=== PATIENT | male | born 1970 | race Caucasian/White ===

== ENCOUNTER → 2016-05-10 | Outpatient (CLI) | payer OTHER ==
[~2016-05-10] MED LIST: /LOR25TA OR; /LOR25TA PO; /LORA10TA PO; ATOR1TAB21 PO; BUTR10DI2 TD; CARI350T20 PO; DICL75TA PO; OMEP20TA7 OR; OPAN5TAB3 PO; PRIL20TA2 PO; RANITAB PO; SOMA250T PO; ULTR50TA PO
--- NOTE | 2016-05-11 00:44 | ECWPNPC ---
PATIENT NAME: SAY RIOS : 1970 GENDER: MALE VISIT DATE: 05/10/2016 DISCHARGE DATE: 05/10/16 0937 VISIT LOCKED DATE TIME: PHYSICIAN: TEJINDER MUSE RESOURCE: TEJINDER MUSE REASON FOR APPOINTMENT 1. WC, BACK HISTORY OF PRESENT ILLNESS HISTORY OF PRESENT ILLNESS: PAIN THE PATIENT DESCRIBES THE PAIN... FALL RISK SCREENING: SCREENING :NO FALLS IN THE PAST YEAR TODAY'S VISIT: NOTES: WORKERS COMP FOLLOW UP FOR LOW BACK PAIN. RATES PAIN TODAY 6.5/10. DESCRIBES PAIN CONSTANT WITH INTERMITTANT EXACERBATION OF PAIN. WHICH OCCURS WITH ACTIVITY. DESCRIBES PAIN ACHING, BURNING, SHARP AND STABBING TENDER SORE AND SHOOTING. PAIN IS ACROSS THE LOW BACK WITH RADIATION TO BOTH LEGS. . CURRENT MEDICATIONS TAKING VITAMIN D-3 5000 UNIT TABLET ORALLY BID TAKING LORATADINE 10 MG TABLET 1 TABLET ORALLY DIRECTED TAKING OMEPRAZOLE 20 MG CAPSULE DELAYED RELEASE 1 CAPSULES ORALLY ONCE A DAY NEEDED TAKING DICLOFENAC SODIUM 75 MG TABLET 1 TAB ORALLY TWICE A DAY WITH FOOD WORKERS COMP, NOTES: TAKE WITH FOOD TAKING CARISOPRODOL 350 MG TABLET 1 TABLET ORALLY BID MDD=2 WORKERS COMP TAKING TRAMADOL HCL 50 MG TABLET 1 -2 TABLETS ORALLY EVERY 4 HOURS PRN PAIN MDD=8 WORKERS COMP TAKING ATORVASTATIN CALCIUM 80 MG TABLET 1 TABLET ORALLY ONCE A DAY NOT-TAKING ATORVASTATIN CALCIUM 20 MG TABLET 1 TABLET ORALLY ONCE A DAY NOT-TAKING PRILOSEC 20 MG CAPSULE DELAYED RELEASE 1 CAPSULE ORALLY ONCE A DAY MEDICATION LIST REVIEWED AND RECONCILED WITH THE PATIENT ALLERGIES N.K.D.A. SOCIAL HISTORY GENERAL: TOBACCO USE ARE YOU A:NONSMOKER LEARNING BARRIERS / SPECIAL NEEDS ORIENTED TO PLAN OF CARE: PATIENT, PAIN MANAGEMENT PATIENT, ORIENTED TO PLAN OF CARE: PATIENT, PAIN MANAGEMENT PATIENT. NEW PATIENT PAIN DIARY TODAY'S VISITNOTES FROM 0-10, WHAT LEVEL IS YOUR PAIN TODAY?0 PAIN CLINIC PFS, CLERGY, PUBLIC HEALTH REFERRALS PFS REFERRAL NEEDED?NO CLERGY REFERRAL NEEDED?NO PUBLIC HEALTH REFERRAL NEEDED?NO WAS THE PROVIDER NOTIFIED OF ANY PERTINENT INFO?NO PFS REFERRAL NEEDED?NO CLERGY REFERRAL NEEDED?NO PUBLIC HEALTH REFERRAL NEEDED?NO WAS THE PROVIDER NOTIFIED OF ANY PERTINENT INFO?NO REVIEW OF SYSTEMS CONSTITUTIONAL: ANY CHANGE IN YOUR MEDICAL CONDITION? NO . CHILLS NO . FEVER NO . INFECTION: DO YOU HAVE NEW INFECTIONS? NO . DO YOU HAVE HISTORY OF MRSA? NO . MUSCULOSKELETAL: ANY NEW PATTERNS OF PAIN OR NUMBNESS? NO . GASTROENTEROLOGY: ANY NEW CHANGE IN BOWEL CONTROL? NO . GENITOURINARY: ANY NEW CHANGE IN BLADDER CONTROL? NO . IS THERE A CHANCE YOU COULD BE ? NO . HEMATOLOGY/LYMPH: DO YOU TAKE ANY BLOOD THINNERS? (FOR EXAMPLE- COUMADIN, PLAVIX, AGGRENOX, PLATEL, PRADAXA, OR XARELTO) NO . WHEN WAS YOUR LAST DOSE? DATE: TIME: . NEUROLOGY: HAVE YOU FALLEN IN THE PAST 6 MONTHS? NO . ANY NEW EXTREMITY NUMBNESS OR WEAKNESS? NO . CARDIOLOGY: DO YOU HAVE A PACEMAKER OR DEFIBRILLATOR? NO . RESPIRATORY: HAVE YOU BEEN SICK IN THE PAST WEEK? NO . FEVER NO . FLU LIKE SYMPTOMS? NO . COUGH NO . INTEGUMENTARY: DO YOU HAVE ANY RASHES OR OPEN SORES? NO . ALLERGIC/IMMUNO: ARE YOU ALLERGIC TO SHELLFISH OR IV DYE? NO . ANY NEW ALLERGIES? NO . PSYCHIATRIC: DO YOU HAVE THOUGHTS OF HURTING YOURSELF OR SOMEONE ELSE? NO . ARE YOU ABUSED, NEGLECTED, OR IN AN UNSAFE ENVIRONMENT? NO . ENDOCRINOLOGY: ARE YOU DIABETIC? NO . OTHER: DO YOU NEED ANY PRESCRIPTIONS? NO . IF YES, PLEASE LIST: ____ . ANY NEW PROBLEMS WITH YOUR MEDICATIONS? NO . WHEN DID YOU LAST EAT? ____ . WHEN DID YOU LAST DRINK? ____ . WHAT DID YOU LAST DRINK? ____ . NAME OF PERSON DRIVING YOU HOME? ____ . DO YOU HAVE ANY OTHER QUESTIONS OR CONCERNS NO . REVIEWED BY: PROVIDER: TEJINDER KRAUSE . VITAL SIGNS WT 230 LBS, HT 6'1", BMI 30.34 INDEX, BP 139/80 MM HG, HR 82 /MIN, RR 18 /MIN, TEMP 97.9 F, OXYGEN SAT % 95%, REVIEWED BY: CS. EXAMINATION GENERAL EXAMINATION: PSYCHALERT , ORIENTED X 3 , APPROPRIATE MOOD AND AFFECT . LUNGS:CLEAR TO AUSCULTATION BILATERALLY. HEART:HEART RATE REGULAR. MUSCULOSKELETAL:TRIGGER POINTS:, ELICITED WITH PALPATION OVER LUMBAR PARAVERTEBRAL MUSCLES AND INTO THE SACRUM. RESTRICTION OF ROM IN THIS AREA. WEAKNESS BILATERALLY WITH QUAD FLEXION.BACK PAIN WITH QUAD FLEXION BILATERALLY. IS ABLE TO FLEX AT ANKLE BILATERALLY.CANE USED FOR BALANCE. POSTURED STOOPED. GAIT ANTALGIC, WIDE BASED. ASSESSMENTS LUMBAR RADICULOPATHY - M54.16 (PRIMARY) LUMBAR POST-LAMINECTOMY SYNDROME - M96.1 TREATMENT LUMBAR RADICULOPATHY NOTES: CONTINUE CURRENT MEDS. WALK TOLERATED. PROCEDURES PN WORKMANS' COMP OPINION IN YOUR OPINION, WAS THE INCIDENT THAT THE PATIENT DESCRIBED THE COMPETENT MEDICAL CAUSE OF THIS INJURY/ILLNESS? YES ARE THE PATIENT'S COMPLAINTS CONSISTENT WITH HIS/HER HISTORY OF THE INJURY/ILLNESS? YES IS THE PATIENT'S HISTORY OF THE INJURY/ILLNESS CONSISTENT WITH YOUR OBJECTIVE FINDING? YES WHAT IS THE PERCENTAGE OF TEMPORARY IMPAIRMENT? TOTAL = 100% IS THE PATIENT WORKING? NO DOCTOR ON SITE: PRO BELL MD PROCEDURE CODES FA211 ESTABILISHED PATIENT [facility] CHARGE FOLLOW UP 3 MONS (REASON: WC) ELECTRONICALLY SIGNED BY FAY GODOY ON 05/10/2016 AT 11:19 AM EST DISCLAIMER : THIS IS A VISIT SUMMARY EXTRACTED FROM THE [employer] CHART. IT IS NOT A COPY OF THE [employer] PROGRESS NOTE. MACIEJ
== END ==
LOC: M PAIN 08:40
PROVIDERS: ATTEND Nurse Practitioner Family
DX: Z09 Encounter for follow-up examination after completed treatment for conditions other than malignant neoplasm (principal); M54.16 Radiculopathy, lumbar region; M96.1 Postlaminectomy syndrome, not elsewhere classified; Z79.891 Long term (current) use of opiate analgesic; Z79.899 Other long term (current) drug therapy

== ENCOUNTER → 2016-08-08 | Outpatient (CLI) | payer OTHER ==
--- NOTE | 2016-08-22 02:22 | ECWPNPC ---
PATIENT NAME: SAY RIOS : 1970 GENDER: MALE VISIT DATE: 08/08/2016 DISCHARGE DATE: 08/08/16926 VISIT LOCKED DATE TIME: PHYSICIAN: TEJINDER MUSE RESOURCE: TEJINDER MUSE REASON FOR APPOINTMENT 1. BACK HISTORY OF PRESENT ILLNESS HISTORY OF PRESENT ILLNESS: PAIN THE PATIENT DESCRIBES THE PAIN... FALL RISK SCREENING: SCREENING :NO FALLS IN THE PAST YEAR TODAY'S VISIT: NOTES: FOLLOWUP VISIT FOR LOW BACK. RATES PAIN TODAY 7.5/10. DESCRIBES PAIN CONSTANT, ACHING, BURNING, SHARP AND STABBING. NOTES PAIN IS CENTERED AT LOW BACK WITH RADIATION OF PAIN TO BOTH LEGS. IS NOTING WEAKING IN LOWER EXTREMITIES. REPORT MEDICATIONS KEEP THE PAIN MANAGABLE AND THAT HE IS HAVING NO ADVERSE REACTIONS.. CURRENT MEDICATIONS TAKING VITAMIN D-3 5000 UNIT TABLET ORALLY BID TAKING LORATADINE 10 MG TABLET 1 TABLET ORALLY DIRECTED TAKING OMEPRAZOLE 20 MG CAPSULE DELAYED RELEASE 1 CAPSULES ORALLY ONCE A DAY NEEDED TAKING ATORVASTATIN CALCIUM 80 MG TABLET 1 TABLET ORALLY ONCE A DAY TAKING DICLOFENAC SODIUM 75 MG TABLET 1 TAB ORALLY TWICE A DAY WITH FOOD WORKERS COMP, NOTES: TAKE WITH FOOD TAKING TRAMADOL HCL 50 MG TABLET 1 -2 TABLETS ORALLY EVERY 4 HOURS PRN PAIN MDD=8 WORKERS COMP TAKING CARISOPRODOL 350 MG TABLET 1 TABLET ORALLY BID MDD=2 WORKERS COMP NOT-TAKING ATORVASTATIN CALCIUM 20 MG TABLET 1 TABLET ORALLY ONCE A DAY NOT-TAKING PRILOSEC 20 MG CAPSULE DELAYED RELEASE 1 CAPSULE ORALLY ONCE A DAY MEDICATION LIST REVIEWED AND RECONCILED WITH THE PATIENT ALLERGIES N.K.D.A. SOCIAL HISTORY GENERAL: PAIN CLINIC PFS, CLERGY, PUBLIC HEALTH REFERRALS CLERGY REFERRAL NEEDED?NO WAS THE PROVIDER NOTIFIED OF ANY PERTINENT INFO?NO PFS REFERRAL NEEDED?NO PUBLIC HEALTH REFERRAL NEEDED?NO PATIENT: ____. REVIEW OF SYSTEMS CONSTITUTIONAL: ANY CHANGE IN YOUR MEDICAL CONDITION? NO . CHILLS NO . FEVER NO . INFECTION: DO YOU HAVE NEW INFECTIONS? NO . DO YOU HAVE HISTORY OF MRSA? NO . MUSCULOSKELETAL: ANY NEW PATTERNS OF PAIN OR NUMBNESS? NO . GASTROENTEROLOGY: ANY NEW CHANGE IN BOWEL CONTROL? NO . GENITOURINARY: ANY NEW CHANGE IN BLADDER CONTROL? NO . IS THERE A CHANCE YOU COULD BE ? NO . HEMATOLOGY/LYMPH: DO YOU TAKE ANY BLOOD THINNERS? (FOR EXAMPLE- COUMADIN, PLAVIX, AGGRENOX, PLATEL, PRADAXA, OR XARELTO) NO . WHEN WAS YOUR LAST DOSE? DATE: TIME: . NEUROLOGY: HAVE YOU FALLEN IN THE PAST 6 MONTHS? NO . ANY NEW EXTREMITY NUMBNESS OR WEAKNESS? NO . CARDIOLOGY: DO YOU HAVE A PACEMAKER OR DEFIBRILLATOR? NO . RESPIRATORY: HAVE YOU BEEN SICK IN THE PAST WEEK? NO . FEVER NO . FLU LIKE SYMPTOMS? NO . COUGH NO . INTEGUMENTARY: DO YOU HAVE ANY RASHES OR OPEN SORES? NO . ALLERGIC/IMMUNO: ARE YOU ALLERGIC TO SHELLFISH OR IV DYE? NO . ANY NEW ALLERGIES? NO . PSYCHIATRIC: DO YOU HAVE THOUGHTS OF HURTING YOURSELF OR SOMEONE ELSE? NO . ARE YOU ABUSED, NEGLECTED, OR IN AN UNSAFE ENVIRONMENT? NO . ENDOCRINOLOGY: ARE YOU DIABETIC? NO . OTHER: DO YOU NEED ANY PRESCRIPTIONS? NO . IF YES, PLEASE LIST: ____ . ANY NEW PROBLEMS WITH YOUR MEDICATIONS? NO . WHEN DID YOU LAST EAT? ____ . WHEN DID YOU LAST DRINK? ____ . WHAT DID YOU LAST DRINK? ____ . NAME OF PERSON DRIVING YOU HOME? ____ . DO YOU HAVE ANY OTHER QUESTIONS OR CONCERNS NO . REVIEWED BY: PROVIDER: TEJINDER KRAUSE . VITAL SIGNS WT 243.8 LBS, HT 6'1", BMI 32.16 INDEX, BP 127/83 MM HG, HR 82 /MIN, RR 18 /MIN, TEMP 99 F, OXYGEN SAT % 98%, NA INITIALS AW 0848, REVIEWED BY: CS. EXAMINATION GENERAL EXAMINATION: PSYCHALERT , ORIENTED X 3 , APPROPRIATE MOOD AND AFFECT . LUNGS:CLEAR TO AUSCULTATION BILATERALLY. HEART:HEART RATE REGULAR. MUSCULOSKELETAL:TRIGGER POINTS:, ELICITED WITH PALPATION OVER LUMBAR PARAVERTEBRAL MUSCLES AND INTO THE SACRUM. RESTRICTION OF ROM IN THIS AREA. WEAKNESS BILATERALLY WITH QUAD FLEXION.BACK PAIN WITH QUAD FLEXION BILATERALLY. IS ABLE TO FLEX AT ANKLE BILATERALLY.CANE USED FOR BALANCE. POSTURED STOOPED. GAIT ANTALGIC, WIDE BASED. ASSESSMENTS LUMBAR RADICULOPATHY - M54.16 (PRIMARY) LUMBAR DISC DISPLACEMENT WITHOUT MYELOPATHY - M51.26 TREATMENT LUMBAR RADICULOPATHY NOTES: CONTINUE WALKING, EXERCISES AND STRETCHESCONTINUE CURRENT MEDS. PROCEDURES PN WORKMANS' COMP OPINION IN YOUR OPINION, WAS THE INCIDENT THAT THE PATIENT DESCRIBED THE COMPETENT MEDICAL CAUSE OF THIS INJURY/ILLNESS? YES ARE THE PATIENT'S COMPLAINTS CONSISTENT WITH HIS/HER HISTORY OF THE INJURY/ILLNESS? YES IS THE PATIENT'S HISTORY OF THE INJURY/ILLNESS CONSISTENT WITH YOUR OBJECTIVE FINDING? YES WHAT IS THE PERCENTAGE OF TEMPORARY IMPAIRMENT? TOTAL = 100% IS THE PATIENT WORKING? NO DOCTOR ON SITE: PRO BELL MD PROCEDURE CODES FA211 ESTABILISHED PATIENT [facility] CHARGE DISPOSITION & COMMUNICATION FOLLOW UP [address] DE SOUZA (REASON: WC BACK) ELECTRONICALLY SIGNED BY FAY GODOY ON 08/21/2016 AT 08:52 AM EDT DISCLAIMER : THIS IS A VISIT SUMMARY EXTRACTED FROM THE [employer] CHART. IT IS NOT A COPY OF THE [employer] PROGRESS NOTE. MACIEJ
== END ==
LOC: M PAIN 08:40
PROVIDERS: ATTEND Nurse Practitioner Family
DX: G89.29 Other chronic pain (principal); M54.16 Radiculopathy, lumbar region; M51.26 Other intervertebral disc displacement, lumbar region; Z79.899 Other long term (current) drug therapy

== ENCOUNTER → 2016-11-22 | Outpatient (CLI) | payer OTHER ==
[~2016-11-22] MED LIST changes: +CARI350T PO; -CARI350T20 PO
--- NOTE | 2016-12-11 00:31 | ECWPNPC ---
PATIENT NAME: SAY RIOS : 1970 GENDER: MALE VISIT DATE: 11/22/2016 DISCHARGE DATE: 11/22/16 1718 VISIT LOCKED DATE TIME: PHYSICIAN: PRO DE SOUZA RESOURCE: PRO DE SOUZA REASON FOR APPOINTMENT 1. W/C BACK PAIN HISTORY OF PRESENT ILLNESS HISTORY OF PRESENT ILLNESS: PAIN THE PATIENT DESCRIBES THE PAIN... 46 YEAR OLD MALE PATIENT WITH HISTORY OF CHRONIC LOW BACK PAIN. PATIENT DESCRIBES THE PAIN ACHING, BURNING, SHARP, STABBING, SORE, AND SHOOTING WITH A PAIN SCORE OF 7/10. PATIENT WAS HURT IN A WORK RELATED INJURY ON 09/17/16 WHILE WORKING AT [employer] WHILE WEED [employer] AND INJURED HIS BACK. PATIENT REPORTS ONE BACK SURGERY IN 2010 THAT INCREASED HIS PAIN AND PHYSICAL THERAPY DID NOT AID IN PAIN RELIEF. CURRENTLY THE PATIENT IS USING SOMA AND TRAMADOL TO AID IN PAIN RELIEF. PATIENT STATES THAT ANY TYPE OF ACTIVITY INCREASES THE PAIN IN HIS LOWER BACK INCLUDING WALKING, STANDING, AND SITTING. PATIENT DENIES UNEXPLAINABLE WEIGHT LOSS, FEVER, CHILLS, NEW CHANGES ON HIS URINARY OR BOWEL CONTROL. FALL RISK SCREENING: SCREENING :NO FALLS IN THE PAST YEAR CURRENT MEDICATIONS TAKING VITAMIN D-3 5000 UNIT TABLET ORALLY BID TAKING LORATADINE 10 MG TABLET 1 TABLET ORALLY DIRECTED TAKING OMEPRAZOLE 20 MG CAPSULE DELAYED RELEASE 1 CAPSULES ORALLY ONCE A DAY NEEDED TAKING ATORVASTATIN CALCIUM 80 MG TABLET 1 TABLET ORALLY ONCE A DAY TAKING TRAMADOL HCL 50 MG TABLET 1 -2 TABLETS ORALLY EVERY 4 HOURS PRN PAIN MDD=8 WORKERS COMP TAKING CARISOPRODOL 350 MG TABLET 1 TABLET ORALLY BID MDD=2 WORKERS COMP TAKING CLOPIDOGREL BISULFATE 75 MG TABLET 1 TABLET ORALLY ONCE A DAY TAKING LISINOPRIL 5 MG TABLET 1 TABLET ORALLY ONCE A DAY TAKING COQ10 100 MG CAPSULE 1 CAPSULE WITH A MEAL ORALLY ONCE A DAY TAKING METOPROLOL TARTRATE 25 MG TABLET 1/2 TABLET WITH FOOD ORALLY TWICE A DAY NOT-TAKING ATORVASTATIN CALCIUM 20 MG TABLET 1 TABLET ORALLY ONCE A DAY NOT-TAKING PRILOSEC 20 MG CAPSULE DELAYED RELEASE 1 CAPSULE ORALLY ONCE A DAY DISCONTINUED DICLOFENAC SODIUM 75 MG TABLET 1 TAB ORALLY TWICE A DAY WITH FOOD WORKERS COMP, NOTES: TAKE WITH FOOD MEDICATION LIST REVIEWED AND RECONCILED WITH THE PATIENT PAST MEDICAL HISTORY 10/08/16 IN ALLERGIES N.K.D.A. SURGICAL HISTORY SINUS,BACK,RIGHT SHOULDER,TONSILLECTOMY CARDIAC STENT 10/08/16 SOCIAL HISTORY GENERAL: PAIN CLINIC PFS, CLERGY, PUBLIC HEALTH REFERRALS CLERGY REFERRAL NEEDED?NO WAS THE PROVIDER NOTIFIED OF ANY PERTINENT INFO?NO PFS REFERRAL NEEDED?NO PUBLIC HEALTH REFERRAL NEEDED?NO PATIENT: ____. REVIEW OF SYSTEMS REVIEWED BY: PROVIDER: PRO DE SOUZA MD . CONSTITUTIONAL: ANY CHANGE IN YOUR MEDICAL CONDITION? YES, IN 10/08/16 . CHILLS NO . FEVER NO . INFECTION: DO YOU HAVE NEW INFECTIONS? NO . DO YOU HAVE HISTORY OF MRSA? NO . MUSCULOSKELETAL: ANY NEW PATTERNS OF PAIN OR NUMBNESS? NO . GASTROENTEROLOGY: ANY NEW CHANGE IN BOWEL CONTROL? NO . GENITOURINARY: ANY NEW CHANGE IN BLADDER CONTROL? NO . IS THERE A CHANCE YOU COULD BE ? NO . HEMATOLOGY/LYMPH: DO YOU TAKE ANY BLOOD THINNERS? (FOR EXAMPLE- COUMADIN, PLAVIX, AGGRENOX, PLATEL, PRADAXA, OR XARELTO) YES, CLOPIDOGRIL . WHEN WAS YOUR LAST DOSE? DATE: TIME: . NEUROLOGY: HAVE YOU FALLEN IN THE PAST 6 MONTHS? NO . ANY NEW EXTREMITY NUMBNESS OR WEAKNESS? NO . CARDIOLOGY: DO YOU HAVE A PACEMAKER OR DEFIBRILLATOR? NO . RESPIRATORY: HAVE YOU BEEN SICK IN THE PAST WEEK? NO . FEVER NO . FLU LIKE SYMPTOMS? NO . COUGH NO . INTEGUMENTARY: DO YOU HAVE ANY RASHES OR OPEN SORES? NO . ALLERGIC/IMMUNO: ARE YOU ALLERGIC TO SHELLFISH OR IV DYE? NO . ANY NEW ALLERGIES? NO . PSYCHIATRIC: DO YOU HAVE THOUGHTS OF HURTING YOURSELF OR SOMEONE ELSE? NO . ARE YOU ABUSED, NEGLECTED, OR IN AN UNSAFE ENVIRONMENT? NO . ENDOCRINOLOGY: ARE YOU DIABETIC? NO . OTHER: DO YOU NEED ANY PRESCRIPTIONS? NO . IF YES, PLEASE LIST: ____ . ANY NEW PROBLEMS WITH YOUR MEDICATIONS? NO . WHEN DID YOU LAST EAT? ____ . WHEN DID YOU LAST DRINK? ____ . WHAT DID YOU LAST DRINK? ____ . NAME OF PERSON DRIVING YOU HOME? ____ . DO YOU HAVE ANY OTHER QUESTIONS OR CONCERNS TRIMMER SAWYER D/C'D DICLOFENAC. ONLY WANTS HIM TO TAKE CELEBREX, CAN ALSO TAKE TYLENOL. . VITAL SIGNS WT 230 LBS, HT 6'1", BMI 30.34 INDEX, BP 133/77 MM HG, HR 66 /MIN, RR 18 /MIN, TEMP 98.5 F, OXYGEN SAT % 96, NA INITIALS AW 1517, REVIEWED BY: JACKLYN. EXAMINATION : PATIENT IS ALERT O X 3 AND COOPERATIVE. ANTALGIC GAIT. TENDERNESS IN THE LOWER BACK AND PARASPINAL MUSCLE GROUP. RIGHT LEG WEAKER THEN THE LEFT AT EXTENSION AND FLEXION. LIMPING RIGHT LEG. FLEX 40 DEGREESAND UNABLE TO EXTEND BACK DUE TO PAIN. ASSESSMENTS RADICULOPATHY, LUMBAR REGION - M54.16 (PRIMARY) POSTLAMINECTOMY SYNDROME, NOT ELSEWHERE CLASSIFIED - M96.1 TREATMENT RADICULOPATHY, LUMBAR REGION NOTES: WE DISCUSSED SEVERAL ISSUES WITH MR. RIOS'S PAIN MANAGEMENT CASE. AT THIS TIME THE PATIENT WILL CONTINUE WITH THE SAME MEDICATION REGIME BEFORE. PATIENT IS USING THE TRAMADOL FOR THE SOMATIC PAIN AND THE SOMA FOR THE MUSCLE SPASMS. PATIENT DENIES ABUSE OF ANY MEDICATION, DENIES USE OF ILLEGAL SUBSTANCES, AND STATES SHE IS ONLY USING THE MEDICATION FOR PAIN MANAGEMENT. URINE TOXICOLOGY REPORT DONE ON 06/15/15 SHOWS CONSISTENT RESULTS WITH THE PATIENT'S MEDICATION LIST. PATIENT WILL PERFORM A URINE TOXICOLOGY REPORT TODAY ALONG WITH A NARCOTIC AGREEMENT. PATIENT WAS REMINDED TO BRING ALL MEDICATIONS TO EVERY VISIT. WE ALSO DISCUSSED SEVERAL INTERVENTIONS THAT MAY AID THE PATIENT IN PAIN RELIEF. WE DISCUSSED MOVING FORWARD WITH A LUMBAR FACET BLOCK BUT THE PATIENT DOES NOT WANT TO MOVE FORWARD WITH INTERVENTION AT THIS TIME. PATIENT WILL FOLLOW UP IN 2 MONTHS. INSTRUCTIONS WERE GIVEN, QUESTIONS WERE ANSWERED, PATIENT REPORTS UNDERSTANDING AND AGREES WITH THE PLAN. I, YAYA BARNETT, DOCUMENTED THE ABOVE INFORMATION ACTING A SCRIBE FOR DR. DE SOUZA. I HAVE REVIEWED THE ABOVE DOCUMENT, WRITTEN BY YAYA LOZANO AND I VERIFY THAT IT IS ACCURATE. OTHERS REFILL TRAMADOL HCL TABLET, 50 MG, 1 TO 2 TABLETS, ORALLY FOR PAIN, EVERY 4 HOURS PRN PAIN MDD=6 WORKERS COMP, 30 DAY(S), 175, REFILLS 0 REFILL CARISOPRODOL TABLET, 350 MG, 1 TABLET, ORALLY, DAILY NEEDED FOR SPASMS AND PAIN MDD1, 30 DAY(S), 30, REFILLS 0 PROCEDURES PN WORKMANS' COMP OPINION IN YOUR OPINION, WAS THE INCIDENT THAT THE PATIENT DESCRIBED THE COMPETENT MEDICAL CAUSE OF THIS INJURY/ILLNESS? YES ARE THE PATIENT'S COMPLAINTS CONSISTENT WITH HIS/HER HISTORY OF THE INJURY/ILLNESS? YES IS THE PATIENT'S HISTORY OF THE INJURY/ILLNESS CONSISTENT WITH YOUR OBJECTIVE FINDING? YES WHAT IS THE PERCENTAGE OF TEMPORARY IMPAIRMENT? TOTAL = 100% IS THE PATIENT WORKING? NO DOCTOR ON SITE: PRO BELL MD PROCEDURE CODES FA211 ESTABILISHED PATIENT [facility] FACILITY CHARGE G8427 DOC MEDS VERIFIED W/PT OR RE G8730 PAIN ASSESS POS TOOL F/U PLAN DOC DISPOSITION & COMMUNICATION FOLLOW UP 2 MONTHS ELECTRONICALLY SIGNED BY PRO DE SOUZA MD ON 12/10/2016 AT 11:58 AM EDT DISCLAIMER : THIS IS A VISIT SUMMARY EXTRACTED FROM THE [employer] CHART. IT IS NOT A COPY OF THE [employer] PROGRESS NOTE. MACIEJ
== END | disposition home or self-care (01) ==
LOC: M PAIN 15:00
PROVIDERS: ATTEND Anesthesiology
DX: G89.29 Other chronic pain (principal); M54.16 Radiculopathy, lumbar region; M96.1 Postlaminectomy syndrome, not elsewhere classified; Z86.73 Personal history of transient ischemic attack (TIA), and cerebral infarction without residual deficits; Z79.899 Other long term (current) drug therapy

== ENCOUNTER → 2017-02-20 | Outpatient (CLI) | payer OTHER ==
--- NOTE | 2017-03-19 00:42 | ECWPNPC ---
PATIENT NAME: SAY RIOS : 1970 GENDER: MALE VISIT DATE: 02/20/2017 DISCHARGE DATE: 02/20/17 1019 VISIT LOCKED DATE TIME: PHYSICIAN: TEJINDER MUSE RESOURCE: TEJINDER MUSE REASON FOR APPOINTMENT 1. WC, BACK HISTORY OF PRESENT ILLNESS HISTORY OF PRESENT ILLNESS: PAIN THE PATIENT DESCRIBES THE PAIN... FALL RISK SCREENING: SCREENING :NO FALLS IN THE PAST YEAR TODAY'S VISIT: NOTES: FOLLOWUP FOR LOW BACK PAIN. RATES PAIN TODAY 7.5/10. DESCRIBES PAIN CONSTANT, SHARP , STABBING, TENDER, THROBBING AND SORE. PAIN IS CENTERED ACROSS THE LOW BACK AND RADIATES TO BOTH LEGS. REPORTS IT IS HARD TO WALK ANY DISTANCE.. CURRENT MEDICATIONS TAKING VITAMIN D-3 5000 UNIT TABLET ORALLY BID TAKING LORATADINE 10 MG TABLET 1 TABLET ORALLY DIRECTED TAKING OMEPRAZOLE 20 MG CAPSULE DELAYED RELEASE 1 CAPSULES ORALLY ONCE A DAY NEEDED TAKING ATORVASTATIN CALCIUM 80 MG TABLET 1 TABLET ORALLY ONCE A DAY TAKING CLOPIDOGREL BISULFATE 75 MG TABLET 1 TABLET ORALLY ONCE A DAY TAKING LISINOPRIL 5 MG TABLET 1 TABLET ORALLY ONCE A DAY TAKING COQ10 100 MG CAPSULE 1 CAPSULE WITH A MEAL ORALLY ONCE A DAY TAKING METOPROLOL TARTRATE 25 MG TABLET 1/2 TABLET WITH FOOD ORALLY TWICE A DAY TAKING TRAMADOL HCL 50 MG TABLET 1 TO 2 TABLETS ORALLY FOR PAIN EVERY 4 HOURS PRN PAIN MDD=6 WORKERS COMP TAKING CARISOPRODOL 350 MG TABLET 1 TABLET ORALLY DAILY NEEDED FOR SPASMS AND PAIN MDD1 NOT-TAKING ATORVASTATIN CALCIUM 20 MG TABLET 1 TABLET ORALLY ONCE A DAY NOT-TAKING PRILOSEC 20 MG CAPSULE DELAYED RELEASE 1 CAPSULE ORALLY ONCE A DAY MEDICATION LIST REVIEWED AND RECONCILED WITH THE PATIENT PAST MEDICAL HISTORY 10/08/16 [place] ALLERGIES N.K.D.A. SOCIAL HISTORY GENERAL: TOBACCO USE ARE YOU A:FORMER SMOKER HOW LONG HAS IT BEEN SINCE YOU LAST SMOKED?5-10 YEARS ALCOHOL SCREENING POINTS0 INTERPRETATIONNEGATIVE RECREATIONAL DRUG USE DRUG USE?NO MUSLIM [id number] [employer] LANG[employer]AGE LANGUAGES SPOKEN:GEORGIAN LEARNING BARRIERS / SPECIAL NEEDS BARRIERS TO LEARNING?NO HEARING IMPAIRED?NO VISION IMPAIRED?NO COGNITIVELY IMPAIRED?NO READINESS TO LEARN?YES LEARNING PREFERENCES?NO LEARNING CAPABILITIES PRESENT?YES EMOTIONAL BARRIERS?NO SPECIAL DEVICES?NO PALEOLOGIST NEEDED?NO PAIN CLINIC PFS, CLERGY, PUBLIC HEALTH REFERRALS PFS REFERRAL NEEDED?NO CLERGY REFERRAL NEEDED?NO PUBLIC HEALTH REFERRAL NEEDED?NO HAS THE PATIENT BEEN EDUCATED REGARDING HIS/HER PLAN OF CARE?YES HAS THE PATIENT BEEN EDUCATED REGARDING PAIN, THE RISK FOR PAIN, THE IMPORTANCE OF EFFECTIVE PAIN MANAGEMENT, AND THE PAIN ASSESSMENT PROCESS?YES PATIENT: ____. ADVANCE DIRECTIVES HEALTH CARE PROXY?YES NAME OF HCP VICTOR HUGO RIOS CONTACT # FOR HCP [phone] DO YOU HAVE A COPY WITH YOU?NO DO YOU HAVE A DNR?NO WOULD YOU LIKE MORE INFORMATION?NO LIVING WILL?NO WOULD YOU LIKE MORE INFORMATION?NO POWER OF RETAIL MERCHANDISING MANAGER?NO WOULD YOU LIKE MORE INFORMATION?NO REVIEW OF SYSTEMS REVIEWED BY: PROVIDER: TEJINDER KRAUSE . CONSTITUTIONAL: ANY CHANGE IN YOUR MEDICAL CONDITION? NO . CHILLS NO . FEVER NO . INFECTION: DO YOU HAVE NEW INFECTIONS? NO . DO YOU HAVE HISTORY OF MRSA? NO . MUSCULOSKELETAL: ANY NEW PATTERNS OF PAIN OR NUMBNESS? NO . GASTROENTEROLOGY: ANY NEW CHANGE IN BOWEL CONTROL? NO . GENITOURINARY: ANY NEW CHANGE IN BLADDER CONTROL? NO . IS THERE A CHANCE YOU COULD BE ? NO . HEMATOLOGY/LYMPH: DO YOU TAKE ANY BLOOD THINNERS? (FOR EXAMPLE- COUMADIN, PLAVIX, AGGRENOX, PLATEL, PRADAXA, OR XARELTO) YES, PLAVIX . WHEN WAS YOUR LAST DOSE? DATE:02/20/17 TIME: 0700 . NEUROLOGY: HAVE YOU FALLEN IN THE PAST 6 MONTHS? NO . ANY NEW EXTREMITY NUMBNESS OR WEAKNESS? NO . CARDIOLOGY: DO YOU HAVE A PACEMAKER OR DEFIBRILLATOR? NO . HEART ATTACK WITH PLACEMENT OF CARDIAC STENT IN SEPTEMBER. NO RECURRENT CHEST PAIN. . RESPIRATORY: HAVE YOU BEEN SICK IN THE PAST WEEK? NO . FEVER NO . FLU LIKE SYMPTOMS? NO . COUGH NO . INTEGUMENTARY: DO YOU HAVE ANY RASHES OR OPEN SORES? NO . ALLERGIC/IMMUNO: ARE YOU ALLERGIC TO SHELLFISH OR IV DYE? NO . ANY NEW ALLERGIES? NO . PSYCHIATRIC: DO YOU HAVE THOUGHTS OF HURTING YOURSELF OR SOMEONE ELSE? NO . ARE YOU ABUSED, NEGLECTED, OR IN AN UNSAFE ENVIRONMENT? NO . ENDOCRINOLOGY: ARE YOU DIABETIC? NO . OTHER: DO YOU NEED ANY PRESCRIPTIONS? NO . IF YES, PLEASE LIST: ____ . ANY NEW PROBLEMS WITH YOUR MEDICATIONS? NO . WHEN DID YOU LAST EAT? ____ . WHEN DID YOU LAST DRINK? ____ . WHAT DID YOU LAST DRINK? ____ . NAME OF PERSON DRIVING YOU HOME? ____ . DO YOU HAVE ANY OTHER QUESTIONS OR CONCERNS NO . VITAL SIGNS WT 240.0 LBS, HT 6'1", BMI 31.66 INDEX, BP 133/90 MM HG, HR 65 /MIN, RR 16 /MIN, TEMP 97.6 F, OXYGEN SAT % 96%, SAFE IN ENV? (Y/N) YES, NA INITIALS TL 0953, REVIEWED BY: SUSAN. EXAMINATION GENERAL EXAMINATION: PSYCHALERT , ORIENTED X 3 , APPROPRIATE MOOD AND AFFECT . LUNGS:CLEAR TO AUSCULTATION BILATERALLY. HEART:HEART RATE REGULAR. MUSCULOSKELETAL:TRIGGER POINTS:, ELICITED WITH PALPATION OVER LUMBAR PARAVERTEBRAL MUSCLES AND INTO THE SACRUM. RESTRICTION OF ROM IN THIS AREA. WEAKNESS BILATERALLY WITH QUAD FLEXION.BACK PAIN WITH QUAD FLEXION BILATERALLY. IS ABLE TO FLEX AT ANKLE BILATERALLY.CANE USED FOR BALANCE. POSTURED STOOPED. GAIT ANTALGIC, WIDE BASED. 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 WALK EVERY DAY. DO EXERCISES DAILY. CALL WHEN SCRIPTS NEEDED. PROCEDURES PN WORKMANS' COMP OPINION IN YOUR OPINION, WAS THE INCIDENT THAT THE PATIENT DESCRIBED THE COMPETENT MEDICAL CAUSE OF THIS INJURY/ILLNESS? YES ARE THE PATIENT'S COMPLAINTS CONSISTENT WITH HIS/HER HISTORY OF THE INJURY/ILLNESS? YES IS THE PATIENT'S HISTORY OF THE INJURY/ILLNESS CONSISTENT WITH YOUR OBJECTIVE FINDING? YES WHAT IS THE PERCENTAGE OF TEMPORARY IMPAIRMENT? TOTAL = 100% IS THE PATIENT WORKING? NO DOCTOR ON SITE: PRO BELL MD PROCEDURE CODES FA211 ESTABILISHED PATIENT [facility] CHARGE DISPOSITION & COMMUNICATION FOLLOW UP 3 MONTHS (REASON: WC BACK) ELECTRONICALLY SIGNED BY FAY GODOY ON 03/18/2017 AT 09:39 PM EST DISCLAIMER : THIS IS A VISIT SUMMARY EXTRACTED FROM THE [employer] CHART. IT IS NOT A COPY OF THE [employer] PROGRESS NOTE. MACIEJ
== END ==
LOC: M PAIN 10:15
PROVIDERS: ATTEND Nurse Practitioner Family
DX: M54.16 Radiculopathy, lumbar region (principal); M96.1 Postlaminectomy syndrome, not elsewhere classified; Z79.891 Long term (current) use of opiate analgesic; Z79.01 Long term (current) use of anticoagulants; Z79.899 Other long term (current) drug therapy; Z87.891 Personal history of nicotine dependence; I25.2 Old myocardial infarction; Z95.5 Presence of coronary angioplasty implant and graft

== ENCOUNTER → 2017-05-23 | Outpatient (CLI) | payer OTHER | LOC: M PAIN 09:30 | DX: M54.16 Radiculopathy, lumbar region (principal); M96.1 Postlaminectomy syndrome, not elsewhere classified; I25.2 Old myocardial infarction; Z79.891 Long term (current) use of opiate analgesic; Z79.899 Other long term (current) drug therapy; Z87.891 Personal history of nicotine dependence | CPT/HCPCS: G0463 ==

== ENCOUNTER → 2017-10-16 | Outpatient (CLI) | payer OTHER | LOC: M PAIN 10:45 | DX: M54.16 Radiculopathy, lumbar region (principal); M96.1 Postlaminectomy syndrome, not elsewhere classified; I25.2 Old myocardial infarction; Z79.01 Long term (current) use of anticoagulants; Z79.899 Other long term (current) drug therapy; Z87.891 Personal history of nicotine dependence | CPT/HCPCS: G0463 ==

== ENCOUNTER → 2018-01-31 | Outpatient (CLI) | payer OTHER | LOC: M PAIN 09:45 | DX: M54.16 Radiculopathy, lumbar region (principal); M96.1 Postlaminectomy syndrome, not elsewhere classified; I25.2 Old myocardial infarction; Z87.891 Personal history of nicotine dependence; Z95.5 Presence of coronary angioplasty implant and graft; Z79.899 Other long term (current) drug therapy | CPT/HCPCS: G0463 ==

== ENCOUNTER → 2018-07-08 | Outpatient (CLI) | payer OTHER ==
[~2018-07-08] MED LIST changes: +CARI1TAB7 PO; -CARI350T PO
--- NOTE | 2018-07-22 00:46 | ECWPNPC ---
PATIENT NAME: SAY RIOS : 1970 GENDER: MALE VISIT DATE: 07/08/2018 DISCHARGE DATE: 07/08/18 1031 VISIT LOCKED DATE TIME: PHYSICIAN: PRO DE SOUZA MD RESOURCE: PRO DE SOUZA MD REASON FOR APPOINTMENT 1. WC LOW BACK HISTORY OF PRESENT ILLNESS HISTORY OF PRESENT ILLNESS: PAIN THE PATIENT DESCRIBES THE PAIN... 47 YEAR OLD MALE PATIENT WITH A HISTORY OF CHRONIC LOW BACK PAIN. THE PATIENT DESCRIBES THE PAIN ACHING, SORE, TENDER, SHARP, STABBING, SHOOTING, AND CONTINUOUS WITH A PAIN SCORE OF 6-7/10 DEPENDING ON PHYSICAL ACTIVITY. THE PATIENT WAS HURT IN A WORK RELATED INJURY ON 09/17/2009 WHILE WORKING FOR [employer] WHEN HE WAS WEED WHACKING AND INJURED HIS BACK. THE PATIENT SAYS HE HAD BACK SURGERY IN 2010, BUT HIS PAIN PERSISTED. THE PATIENT HAS TRIED PHYSICAL THERAPY IN THE PAST, BUT SAYS IT DID NOT HELP. THE PATIENT HAS MAINLY BEEN USING MEDICATION MANAGEMENT TO CONTROL HIS PAIN. THE PATIENT IS CURRENTLY USING TRAMADOL AND SOMA TO AID IN PAIN RELIEF. THE PATIENT WAS USING GABAPENTIN, BUT SAYS IT GAVE HIM ADVERSE SIDE EFFECTS. PATIENT DENIES UNEXPLAINABLE WEIGHT LOSS, FEVER, CHILLS, NEW CHANGES ON HIS URINARY OR BOWEL CONTROL. FALL RISK SCREENING: SCREENING : NO FALLS IN THE PAST YEAR. CURRENT MEDICATIONS TAKING VITAMIN D-3 5000 UNIT TABLET ORALLY BID TAKING LORATADINE 10 MG TABLET 1 TABLET ORALLY DIRECTED TAKING OMEPRAZOLE 20 MG CAPSULE DELAYED RELEASE 1 CAPSULES ORALLY ONCE A DAY NEEDED TAKING ATORVASTATIN CALCIUM 80 MG TABLET 1 TABLET ORALLY ONCE A DAY TAKING LISINOPRIL 5 MG TABLET 1 TABLET ORALLY ONCE A DAY TAKING COQ10 100 MG CAPSULE 1 CAPSULE WITH A MEAL ORALLY ONCE A DAY TAKING METOPROLOL TARTRATE 25 MG TABLET 1/2 TABLET WITH FOOD ORALLY TWICE A DAY TAKING MULTIVITAMIN - TABLET CHEWABLE ORALLY TAKING CARISOPRODOL 350 MG TABLET 1 TABLET ORALLY DAILY NEEDED FOR SPASMS AND PAIN MDD1 TAKING TRAMADOL HCL 50 MG TABLET 1 TO 2 TABLETS ORALLY FOR PAIN EVERY 4 HOURS PRN PAIN MDD=6 WORKERS COMP TAKING ASPIRIN 81 81 MG TABLET CHEWABLE 1 TABLET ORALLY ONCE A DAY NOT-TAKING CLOPIDOGREL BISULFATE 75 MG TABLET 1 TABLET ORALLY ONCE A DAY NOT-TAKING ATORVASTATIN CALCIUM 20 MG TABLET 1 TABLET ORALLY ONCE A DAY NOT-TAKING PRILOSEC 20 MG CAPSULE DELAYED RELEASE 1 CAPSULE ORALLY ONCE A DAY MEDICATION LIST REVIEWED AND RECONCILED WITH THE PATIENT PAST MEDICAL HISTORY 10/08/16 GA CHRONIC BACK PAIN HYPERCHOLESTEROLEMIA ALLERGIES N.K.D.A. SURGICAL HISTORY SINUS,BACK,RIGHT SHOULDER,TONSILLECTOMY CARDIAC STENT 10/08/16 FAMILY HISTORY FATHER: ALIVE, DIAGNOSED WITH CANCER MOTHER: ALIVE, HEART DISEASE 1 SISTER(S) - HEALTHY. SOCIAL HISTORY GENERAL: TOBACCO USE ARE YOU A:FORMER SMOKER HOW LONG HAS IT BEEN SINCE YOU LAST SMOKED?5-10 YEARS LATEX QUESTIONNAIRE LATEX ALLERGY : HAVE YOU EVER DEVELOPED ANY TYPE OF REACTION AFTER HANDLING LATEX PRODUCTS SUCH RUBBER GLOVES, CONDOMS, DIAPHRAGMS, BALLOONS, SOCKS, OR UNDERWEAR?NO LATEX ALLERGY : HAVE YOU EVER DEVELOPED ANY TYPE OF REACTION DURING OR AFTER DENTAL APPOINTMENT, VAGINAL/RECTAL EXAMINATION, SURGICAL PROCEDURE, OR ANY OTHER EXPOSURE?NO LATEX RISK : HAVE YOU EVER HAD ANY DIFFICULTY BREATHING OR HIVES AFTER EATING OR HANDLING ANY FRUITS, OR VEGETABLES; SUCH KIWI, BANANAS, STONE FRUITS, OR CHESTNUTSNO LATEX RISK : DO YOU HAVE A PREVIOUS PERSONAL HISTORY OF MORE THAN NINE SURGERIES, SPINA BIFIDA, OR REPEATED CATHERTIZATIONS? NO LATEX RISK : ARE YOU FREQUENTLY EXPOSED TO LATEX PRODUCTS IN YOUR OCCUPATION?NO DATE ASKED : 07/08/2018 ALCOHOL SCREENING DID YOU HAVE A DRINK CONTAINING ALCOHOL IN THE PAST YEAR?NO POINTS0 INTERPRETATIONNEGATIVE RECREATIONAL DRUG USE DRUG USE?NO HOAHAOISM [id number] SABIANISM LANGUAGE LANGUAGES SPOKEN:TURKMEN LEARNING BARRIERS / SPECIAL NEEDS BARRIERS TO LEARNING?NO HEARING IMPAIRED?NO VISION IMPAIRED?NO COGNITIVELY IMPAIRED?NO READINESS TO LEARN?YES LEARNING PREFERENCES?NO LEARNING CAPABILITIES PRESENT?YES EMOTIONAL BARRIERS?NO SPECIAL DEVICES?NO ENGAGEMENT DIRECTOR NEEDED?NO OCCUPATION: DISABILITY. MARITAL STATUS: . OTHERS AT HOME: SPOUSE. PAIN CLINIC PFS, CLERGY, PUBLIC HEALTH REFERRALS PFS REFERRAL NEEDED?NO CLERGY REFERRAL NEEDED?NO PUBLIC HEALTH REFERRAL NEEDED?NO HAS THE PATIENT BEEN EDUCATED REGARDING HIS/HER PLAN OF CARE?YES HAS THE PATIENT BEEN EDUCATED REGARDING PAIN, THE RISK FOR PAIN, THE IMPORTANCE OF EFFECTIVE PAIN MANAGEMENT, AND THE PAIN ASSESSMENT PROCESS?YES ADVANCE DIRECTIVE ADVANCE DIRECTIVE DISCUSSED WITH PATIENT:YES DECLINED HCP INFORMATION. REVIEWED WITH PT, 01/31/18 1020 LASREVIEWED WITH PATIENT 07/08/18 0991 JS. HOSPITALIZATION/MAJOR DIAGNOSTIC PROCEDURE GA REVIEW OF SYSTEMS REVIEWED BY: PROVIDER: PRO DE SOUZA MD . CONSTITUTIONAL: ANY CHANGE IN YOUR MEDICAL CONDITION? NO . CHILLS NO . FEVER NO . INFECTION: DO YOU HAVE NEW INFECTIONS? NO . DO YOU HAVE HISTORY OF MRSA? NO . MUSCULOSKELETAL: ANY NEW PATTERNS OF PAIN OR NUMBNESS? NO . GASTROENTEROLOGY: ANY NEW CHANGE IN BOWEL CONTROL? NO . GENITOURINARY: ANY NEW CHANGE IN BLADDER CONTROL? NO . IS THERE A CHANCE YOU COULD BE ? NO . HEMATOLOGY/LYMPH: DO YOU TAKE ANY BLOOD THINNERS? (FOR EXAMPLE- COUMADIN, PLAVIX, AGGRENOX, PLATEL, PRADAXA, OR XARELTO) NO . WHEN WAS YOUR LAST DOSE? DATE: TIME: . NEUROLOGY: HAVE YOU FALLEN IN THE PAST 12 MONTHS? NO . ANY NEW EXTREMITY NUMBNESS OR WEAKNESS? NO . CARDIOLOGY: DO YOU HAVE A PACEMAKER OR DEFIBRILLATOR? NO . RESPIRATORY: HAVE YOU BEEN SICK IN THE PAST WEEK? NO . FEVER NO . FLU LIKE SYMPTOMS? NO . COUGH NO . INTEGUMENTARY: DO YOU HAVE ANY RASHES OR OPEN SORES? NO . ALLERGIC/IMMUNO: ARE YOU ALLERGIC TO IV DYE? NO . ANY NEW ALLERGIES? NO . PSYCHIATRIC: DO YOU HAVE THOUGHTS OF HURTING YOURSELF OR SOMEONE ELSE? NO . ARE YOU ABUSED, NEGLECTED, OR IN AN UNSAFE ENVIRONMENT? NO . ENDOCRINOLOGY: ARE YOU DIABETIC? NO . OTHER: DO YOU NEED ANY PRESCRIPTIONS? NO . IF YES, PLEASE LIST: ____ . ANY NEW PROBLEMS WITH YOUR MEDICATIONS? NO . WHEN DID YOU LAST EAT? ____ . WHEN DID YOU LAST DRINK? ____ . WHAT DID YOU LAST DRINK? ____ . NAME OF PERSON DRIVING YOU HOME? ____ . DO YOU HAVE ANY OTHER QUESTIONS OR CONCERNS NO . VITAL SIGNS WT 238 LBS, HT 6'1", BMI 31.40 INDEX, BP 132/80 MM HG, HR 69 /MIN, RR 16 /MIN, TEMP 98.8 F, OXYGEN SAT % 96%, SAFE IN ENV? (Y/N) YES, NA INITIALS AW 0930, REVIEWED BY: MICHELLE. EXAMINATION GENERAL EXAMINATION: PATIENT IS ALERT O X 3 AND COOPERATIVE. ANTALGIC GAIT. RIGHT LEG IS WEAKER AT EXTENSION AND FLEXION. STRAIGHT LEG RAISE OF THE RIGHT LEG IS POSITIVE AT 30 DEGREES FOR RADICULOPATHY. ASSESSMENTS LUMBAR POST-LAMINECTOMY SYNDROME - M96.1 (PRIMARY) LUMBAR RADICULOPATHY - M54.16 TREATMENT LUMBAR POST-LAMINECTOMY SYNDROME CLINICAL NOTES: WE DISCUSSED SEVERAL ISSUES WITH MR. RISO'S PAIN MANAGEMENT CASE. THE PATIENT WILL CONTINUE USING TRAMADOL FOR THE SOMATIC PAIN AND WILL USE 1 SOMA PER DAY AT NIGHT FOR SEVERE SPASMS. ISTOP _#[id number] WAS REVIEWED. URINE TOXICOLOGY DONE ON 11/22/2016 SHOWS CONCURRENT RESULTS AND I WILL REPEAT THE URINE TOXICOLOGY TODAY. I WOULD LIKE TO ORDER A LUMBAR MRI WITH AND WITHOUT CONTRAST TO GET A BETTER UNDERSTANDING OF WHERE THE PATIENT'S PAIN IS COMING FROM AND HIS PREVIOUS MRI WAS SEVERAL YEARS AGO. DEPENDING ON THE RESULTS OF THE MRI, THE PATIENT WILL CONSIDER AN INJECTION TO TRY TO REDUCE HIS PAIN MEDICATIONS. THE PATIENT WILL FOLLOW UP IN 6 WEEKS. INSTRUCTIONS WERE GIVEN, QUESTIONS WERE ANSWERED, PATIENT REPORTS UNDERSTANDING AND AGREES WITH THE PLAN. I, SANTIAGO VEGA, DOCUMENTED THE ABOVE INFORMATION ACTING A SCRIBE FOR DR. DE SOUZA. I HAVE REVIEWED THE ABOVE DOCUMENT, WRITTEN BY SANTIAGO LOZANO AND I VERIFY THAT IT IS ACCURATE. . OTHERS REFILL TRAMADOL HCL TABLET, 50 MG, 1 TO 2 TABLETS, ORALLY FOR PAIN, EVERY 4 HOURS PRN PAIN MDD=6 WORKERS COMP, 30 DAY(S), 175, REFILLS 0 REFILL CARISOPRODOL TABLET, 350 MG, 1 TABLET, ORALLY, DAILY NEEDED FOR SPASMS AND PAIN MDD1, 30 DAY(S), 30, REFILLS 0 PROCEDURES PN WORKMANS' COMP OPINION IN YOUR OPINION, WAS THE INCIDENT THAT THE PATIENT DESCRIBED THE COMPETENT MEDICAL CAUSE OF THIS INJURY/ILLNESS? YES ARE THE PATIENT'S COMPLAINTS CONSISTENT WITH HIS/HER HISTORY OF THE INJURY/ILLNESS? YES IS THE PATIENT'S HISTORY OF THE INJURY/ILLNESS CONSISTENT WITH YOUR OBJECTIVE FINDING? YES WHAT IS THE PERCENTAGE OF TEMPORARY IMPAIRMENT? TOTAL = 100% IS THE PATIENT WORKING? NO DOCTOR ON SITE: PRO BELL MD PROCEDURE CODES FA211 ESTABILISHED PATIENT [facility] FACILITY CHARGE G8427 CURRENT MEDS W/DOSAGES DOCUMENTED G8730 PAIN ASSESS POS TOOL F/U PLAN DOC DISPOSITION & COMMUNICATION FOLLOW UP 6 WEEKS (REASON: W/C LOW BACK) ELECTRONICALLY SIGNED BY PRO DE SOUZA MD, MD ON 07/21/2018 AT 06:48 PM EDT DISCLAIMER : THIS IS A VISIT SUMMARY EXTRACTED FROM THE [employer] CHART. IT IS NOT A COPY OF THE [employer] PROGRESS NOTE. MACIEJ
== END ==
LOC: M PAIN 09:30
PROVIDERS: ATTEND Anesthesiology
DX: M96.1 Postlaminectomy syndrome, not elsewhere classified (principal); M54.16 Radiculopathy, lumbar region; E78.00 Pure hypercholesterolemia, unspecified; Z79.82 Long term (current) use of aspirin; Z79.899 Other long term (current) drug therapy; Z86.79 Personal history of other diseases of the circulatory system; Z87.891 Personal history of nicotine dependence

== ENCOUNTER 2018-08-17 17:09 | Emergency (ER) | payer OTHER ==
[~2018-08-17] VITALS: Ht 185.4 cm; Wt 102.3 kg
[~2018-08-17 17:09] MED LIST changes: -/LORA10TA PO; +LORA-385 PO
[2018-08-17] MEDS ORDERED: LISI-538 PO (17:17)
[2018-08-17 17:50] LABS: BASO # 0.1 10^3/uL (0.0-0.2); BASO % 0.4 % (0.0-1.0); EOS # 0.2 10^3/uL (0.0-0.50); HEMATOCRIT 46.3 % (42.0-52.0); HEMOGLOBIN 15.6 g/dl (13.5-17.5); LYMPH # 1.9 10^3/uL (1.5-4.5); LYMPH % 11.1 % (24.0-44.0); MEAN CORPUSCULAR HEMOGLOBIN 30.3 pg (27.0-33.0); MEAN CORPUSCULAR HGB CONC 33.7 g/dl (32.0-36.5); MEAN CORPUSCULAR VOLUME 89.9 fl (80.0-96.0); MONO # 1.2 10^3/uL (0.0-0.8); MONO % 7.2 % (0.0-5.0); NEUTROPHILS # 13.7 10^3/uL (1.8-7.7); PLATELET COUNT, AUTOMATED 240 10^3/uL (150-450); RED BLOOD COUNT 5.15 10^6/uL (4.30-6.10); WHITE BLOOD COUNT 17.2 10^3/uL (4.0-10.0)
[2018-08-17] MEDS: MORPHINE 4 MG/ML 1ML VIAL/SYRINGE (J2270) IV PRN ×2 (17:58→18:50)
[2018-08-17] MEDS ORDERED: ONDANSETRON 4MG/2ML VIAL (J2405) IV ONE (18:00)
[2018-08-17 18:12] LABS: ALBUMIN 4.4 GM/DL (3.2-5.2); ALT/SGPT 47 U/L (12-78); BILIRUBIN,DIRECT 0.2 MG/DL (0.0-0.2); BILIRUBIN,TOTAL 0.5 MG/DL (0.2-1.0); BLOOD UREA NITROGEN 12 MG/DL (7-18); CARBON DIOXIDE LEVEL 26 MEQ/L (21-32); CHLORIDE LEVEL 104 MEQ/L (98-107); CREATININE FOR GFR 1.24 MG/DL (0.70-1.30); GLOMERULAR FILTRATION RATE > 60.0 (>60); GLUCOSE, FASTING 118 MG/DL (70-100); LIPASE 140 U/L (73-393); POTASSIUM SERUM 4.1 MEQ/L (3.5-5.1); SODIUM LEVEL 140 MEQ/L (136-145); TOTAL PROTEIN 7.5 GM/DL (6.4-8.2)
--- NOTE | 2018-08-17 20:00 | REPVR ---
EXAM: CT Abdomen and Pelvis Without Contrast EXAM DATE/TIME: 08/17/2018 6:44 PM CLINICAL HISTORY: 47 years old, male; Abdominal pain; Flank; Left; Additional info: L flank pain TECHNIQUE: Imaging protocol: Axial computed tomography images of the abdomen and pelvis without contrast. Coronal and sagittal reformatted images were created and reviewed. Radiation optimization: All CT scans at this facility use at least one of these dose optimization techniques: automated exposure control; mA and/or kV adjustment per patient size (includes targeted exams where dose is matched to clinical indication); or iterative reconstruction. COMPARISON: No relevant prior studies available. FINDINGS: ABDOMEN: Liver: Normal. No mass. Gallbladder and bile ducts: Normal. No calcified stones. No ductal dilation. Pancreas: Normal. No ductal dilation. Spleen: Normal. No splenomegaly. Adrenals: Normal. No mass. Kidneys and ureters: The left kidney is enlarged. Mild stranding of the perinephric fat noted. Mild left hydronephrosis. 6 mm calcification in the proximal left ureter with a density measurement of 739 H.. 7.4 mm calcification in the upper pole of the left kidney. 3 calcifications in the upper pole measuring 2.9, 2.6 and 1.8 mm respectively. 3.5 mm calcification in the lower pole of the left kidney. Stomach and bowel: Normal. No obstruction. No mucosal thickening. Appendix: No evidence of appendicitis. PELVIS: Bladder: Unremarkable as visualized. Reproductive: Calcifications in the prostate. The prostate measures 4.1 x 5 x 4.9 cm. ABDOMEN and PELVIS: Intraperitoneal space: Normal. No free air. No significant fluid collection. Bones/joints: Degenerative disc disease at L4-5 with endplate sclerosis, vacuum disc phenomenon and marginal osteophytes. Posterior bulging disc noted at this level with narrowing of the left lateral recess and left foraminal stenosis.. Soft tissues: Unremarkable. Vasculature: Normal. No abdominal aortic aneurysm. Lungs: Hyperdensity in the left pulmonary hilum suggests possibility of calcified adenopathy. IMPRESSION: 1. Left-sided moderate hydronephrosis secondary to obstructing calculus in the proximal left ureter at the ureteropelvic junction. Residual calcifications noted in the left kidney. Electronically signed by: Felicia Leone On 08/17/2018 20:00:18 PM
[2018-08-17] MEDS ORDERED: DILUENT IV ONE (20:15)
[2018-08-17] MEDS ORDERED: NS 1,000 ML IV ONE (20:15)
[2018-08-17] MEDS ORDERED: DEXTROSE IV ONE (20:15)
[2018-08-17] MEDS ORDERED: KETOROLAC 30 MG/ML VIAL (J1885) IV ONE (20:15)
[2018-08-17] MEDS ORDERED: LIDOCAINE HCL IV ONE (20:15)
[2018-08-17] MEDS ORDERED: TAMSULOSIN 0.4 MG CAP PO ONE (20:30)
[2018-08-17 20:34] VITALS: BP 138/71
[2018-08-17] MEDS ORDERED: FLOM0.4C39 PO (21:05)
[2018-08-17] MEDS ORDERED: PERC5TAB12 PO (21:05)
[2018-08-17] MEDS ORDERED: IBUP80TA PO (21:05)
--- NOTE | 2018-08-18 16:31 | ECGEPIP ---
Stationary ECG Study [facility] - ED Test Date: 2018-08-17 Pat Name: SAY RIOS Department: Room: - Gender: M Superintendent Mechanical: : 1970 Requested By: Sheyla Badillo PA-C Order Number: [id number] Reading MD: Dalia Sanches Measurements Intervals [place] Rate: 74 P: 62 IA: 169 QRS: 53 QRSD: 107 T: 33 QT: 398 QTc: 444 Interpretive Statements SINUS RHYTHM NSTTW ABNORMALITY NO PRIOR FOR COMPARISON Electronically Signed On 08-18-2018 16:31:42 EDT by Dalia Sanches
== END 2018-08-17 21:20 | disposition home or self-care (01) ==
LOC: M ED 17:09
DX: N23 Unspecified renal colic (principal); N20.1 Calculus of ureter; Z79.899 Other long term (current) drug therapy
CPT/HCPCS: 74176; 80048; 80076; 81001; 83690; 85025; 93005; 96374; 96375; 96376; 99284; J1885; J2270; J2405

== ENCOUNTER → 2018-09-11 | Outpatient (CLI) | payer OTHER ==
[~2018-09-11] MED LIST changes: +FLOM0.4C39 PO; +IBUP80TA PO; +LISI-538 PO; +PERC5TAB12 PO
== END ==
LOC: M PAIN 15:15
PROVIDERS: ATTEND Anesthesiology
DX: M96.1 Postlaminectomy syndrome, not elsewhere classified (principal); Z53.29 Procedure and treatment not carried out because of patient's decision for other reasons

== ENCOUNTER → 2018-10-18 | Outpatient (CLI) | payer OTHER ==
--- NOTE | 2018-11-13 23:58 | ECWPNPC ---
PATIENT NAME: SAY RIOS : 1970 GENDER: MALE VISIT DATE: 10/18/2018 DISCHARGE DATE: 10/18/18926 VISIT LOCKED DATE TIME: PHYSICIAN: KRISHAN ROCHA RESOURCE: KRISHAN ROCHA REASON FOR APPOINTMENT 1. WC-MEDICATION MANAGEMENT (IM PT) HISTORY OF PRESENT ILLNESS HISTORY OF PRESENT ILLNESS: PAIN THE PATIENT DESCRIBES THE PAIN... THE PATIENT DESCRIBES THE PAIN... 47 YEAR OLD MALE PATIENT WITH A HISTORY OF CHRONIC LOW BACK PAIN. THE PATIENT DESCRIBES THE PAIN ACHING, SORE, TENDER, SHARP, STABBING, SHOOTING, AND CONTINUOUS WITH A PAIN SCORE OF 7/10 DEPENDING ON PHYSICAL ACTIVITY. THE PATIENT WAS HURT IN A WORK RELATED INJURY ON 09/17/2009 WHILE WORKING FOR [employer] WHEN HE WAS WEED WHACKING AND INJURED HIS BACK. THE PATIENT SAYS HE HAD BACK SURGERY IN 2010, BUT HIS PAIN PERSISTED. THE PATIENT HAS TRIED PHYSICAL THERAPY IN THE PAST, BUT SAYS IT DID NOT HELP. THE PATIENT HAS MAINLY BEEN USING MEDICATION MANAGEMENT TO CONTROL HIS PAIN. THE PATIENT IS CURRENTLY USING TRAMADOL AND SOMA TO AID IN PAIN RELIEF. FALL RISK SCREENING: SCREENING :NO FALLS REPORTED IN THE LAST YEAR CURRENT MEDICATIONS TAKING VITAMIN D-3 5000 UNIT TABLET ORALLY BID TAKING LORATADINE 10 MG TABLET 1 TABLET ORALLY DIRECTED TAKING OMEPRAZOLE 20 MG CAPSULE DELAYED RELEASE 1 CAPSULES ORALLY ONCE A DAY NEEDED TAKING ATORVASTATIN CALCIUM 80 MG TABLET 1 TABLET ORALLY ONCE A DAY TAKING LISINOPRIL 5 MG TABLET 1 TABLET ORALLY ONCE A DAY TAKING COQ10 100 MG CAPSULE 1 CAPSULE WITH A MEAL ORALLY ONCE A DAY TAKING METOPROLOL TARTRATE 25 MG TABLET 1/2 TABLET WITH FOOD ORALLY TWICE A DAY TAKING MULTIVITAMIN - TABLET CHEWABLE ORALLY TAKING ASPIRIN 81 81 MG TABLET CHEWABLE 1 TABLET ORALLY ONCE A DAY TAKING TRAMADOL HCL 50 MG TABLET 1 TO 2 TABLETS ORALLY FOR PAIN EVERY 4 HOURS PRN PAIN MDD=6 WORKERS COMP TAKING CARISOPRODOL 350 MG TABLET 1 TABLET ORALLY DAILY NEEDED FOR SPASMS AND PAIN MDD1 NOT-TAKING FLOMAX 0.4 MG CAPSULE 1 CAPSULE ORALLY ONCE A DAY NOT-TAKING CLOPIDOGREL BISULFATE 75 MG TABLET 1 TABLET ORALLY ONCE A DAY NOT-TAKING ATORVASTATIN CALCIUM 20 MG TABLET 1 TABLET ORALLY ONCE A DAY NOT-TAKING PRILOSEC 20 MG CAPSULE DELAYED RELEASE 1 CAPSULE ORALLY ONCE A DAY MEDICATION LIST REVIEWED AND RECONCILED WITH THE PATIENT PAST MEDICAL HISTORY 10/08/16 [place] CHRONIC BACK PAIN HYPERCHOLESTEROLEMIA KIDNEY STONE ALLERGIES N.K.D.A. SURGICAL HISTORY SINUS,BACK,RIGHT SHOULDER,TONSILLECTOMY CARDIAC STENT 10/08/16 LEFT KIDNEY STENT 08/2018 FAMILY HISTORY FATHER: ALIVE, DIAGNOSED WITH CANCER MOTHER: ALIVE, HEART DISEASE 1 SISTER(S) - HEALTHY. SOCIAL HISTORY GENERAL: TOBACCO USE ARE YOU A:FORMER SMOKER HOW LONG HAS IT BEEN SINCE YOU LAST SMOKED?5-10 YEARS PAIN CLINIC PFS, CLERGY, PUBLIC HEALTH REFERRALS PFS REFERRAL NEEDED?NO CLERGY REFERRAL NEEDED?NO PUBLIC HEALTH REFERRAL NEEDED?NO HAS THE PATIENT BEEN EDUCATED REGARDING HIS/HER PLAN OF CARE?YES HAS THE PATIENT BEEN EDUCATED REGARDING PAIN, THE RISK FOR PAIN, THE IMPORTANCE OF EFFECTIVE PAIN MANAGEMENT, AND THE PAIN ASSESSMENT PROCESS?YES LATEX QUESTIONNAIRE LATEX ALLERGY : HAVE YOU EVER DEVELOPED ANY TYPE OF REACTION AFTER HANDLING LATEX PRODUCTS SUCH RUBBER GLOVES, CONDOMS, DIAPHRAGMS, BALLOONS, SOCKS, OR UNDERWEAR?NO LATEX ALLERGY : HAVE YOU EVER DEVELOPED ANY TYPE OF REACTION DURING OR AFTER DENTAL APPOINTMENT, VAGINAL/RECTAL EXAMINATION, SURGICAL PROCEDURE, OR ANY OTHER EXPOSURE?NO LATEX RISK : HAVE YOU EVER HAD ANY DIFFICULTY BREATHING OR HIVES AFTER EATING OR HANDLING ANY FRUITS, OR VEGETABLES; SUCH KIWI, BANANAS, STONE FRUITS, OR CHESTNUTSNO LATEX RISK : DO YOU HAVE A PREVIOUS PERSONAL HISTORY OF MORE THAN NINE SURGERIES, SPINA BIFIDA, OR REPEATED CATHERIZATIONS? NO LATEX RISK : ARE YOU FREQUENTLY EXPOSED TO LATEX PRODUCTS IN YOUR OCCUPATION?NO DATE ASKED : 07/08/2018 OTHERS AT HOME: SPOUSE. ADVANCE DIRECTIVE ADVANCE DIRECTIVE DISCUSSED WITH PATIENT:YES DECLINED HCP INFORMATION. ANGLICAN [id number] HOLINESS LANGUAGE LANGUAGES SPOKEN:CROATIAN MARITAL STATUS: . ALCOHOL SCREENING DID YOU HAVE A DRINK CONTAINING ALCOHOL IN THE PAST YEAR?NO POINTS0 INTERPRETATIONNEGATIVE RECREATIONAL DRUG USE DRUG USE?NO OCCUPATION: DISABILITY. LEARNING BARRIERS / SPECIAL NEEDS BARRIERS TO LEARNING?NO HEARING IMPAIRED?NO VISION IMPAIRED?NO COGNITIVELY IMPAIRED?NO READINESS TO LEARN?YES LEARNING PREFERENCES?NO LEARNING CAPABILITIES PRESENT?YES EMOTIONAL BARRIERS?NO SPECIAL DEVICES?NO GUARD IMMIGRATION NEEDED?NO REVIEWED WITH PT, 01/31/18 1020 LASREVIEWED WITH PATIENT 07/08/18 0938 JS. HOSPITALIZATION/MAJOR DIAGNOSTIC PROCEDURE DC KIDNEY STONE 08/2018 REVIEW OF SYSTEMS REVIEWED BY: PROVIDER: CHRISTOPHER JOSEFINA DRAWING FRAME TENDER-C . CONSTITUTIONAL: ANY CHANGE IN YOUR MEDICAL CONDITION? NO . CHILLS NO . FEVER NO . INFECTION: DO YOU HAVE NEW INFECTIONS? NO . DO YOU HAVE HISTORY OF MRSA? NO . MUSCULOSKELETAL: ANY NEW PATTERNS OF PAIN OR NUMBNESS? NO . GASTROENTEROLOGY: ANY NEW CHANGE IN BOWEL CONTROL? NO . GENITOURINARY: ANY NEW CHANGE IN BLADDER CONTROL? NO . IS THERE A CHANCE YOU COULD BE ? NO . HEMATOLOGY/LYMPH: DO YOU TAKE ANY BLOOD THINNERS? (FOR EXAMPLE- COUMADIN, PLAVIX, AGGRENOX, PLATEL, PRADAXA, OR XARELTO) NO . WHEN WAS YOUR LAST DOSE? DATE: TIME: . NEUROLOGY: HAVE YOU FALLEN IN THE PAST 12 MONTHS? NO . ANY NEW EXTREMITY NUMBNESS OR WEAKNESS? NO . CARDIOLOGY: DO YOU HAVE A PACEMAKER OR DEFIBRILLATOR? NO . RESPIRATORY: HAVE YOU BEEN SICK IN THE PAST WEEK? NO . FEVER NO . FLU LIKE SYMPTOMS? NO . COUGH NO . INTEGUMENTARY: DO YOU HAVE ANY RASHES OR OPEN SORES? NO . ALLERGIC/IMMUNO: ARE YOU ALLERGIC TO IV DYE? NO . ANY NEW ALLERGIES? NO . PSYCHIATRIC: DO YOU HAVE THOUGHTS OF HURTING YOURSELF OR SOMEONE ELSE? NO . ARE YOU ABUSED, NEGLECTED, OR IN AN UNSAFE ENVIRONMENT? NO . ENDOCRINOLOGY: ARE YOU DIABETIC? NO . OTHER: DO YOU NEED ANY PRESCRIPTIONS? NO . IF YES, PLEASE LIST: ____ . ANY NEW PROBLEMS WITH YOUR MEDICATIONS? NO . WHEN DID YOU LAST EAT? ____ . WHEN DID YOU LAST DRINK? ____ . WHAT DID YOU LAST DRINK? ____ . NAME OF PERSON DRIVING YOU HOME? ____ . DO YOU HAVE ANY OTHER QUESTIONS OR CONCERNS NO . VITAL SIGNS WT 222.2 LBS, HT 6'1", BMI 29.31 INDEX, BP 129/80 MM HG, HR 63 /MIN, RR 16 /MIN, TEMP 97.6 F, OXYGEN SAT % 98%, NA INITIALS SC 08:52. EXAMINATION GENERAL EXAMINATION: GENERALNO ACUTE DISTRESS, WELL NOURISHED AND HYDRATED. PSYCHAPPROPRIATE MOOD AND AFFECT . LUNGS:CLEAR TO AUSCULTATION BILATERALLY, NO WHEEZES, RHONCHI, RALES. HEART:NO MURMURS, REGULAR RATE AND RHYTHM. BACK:SKIN SURROUNDING LUMBAR REGION SHOWS NO ERYTHEMA, INCREASED WARMTH, OR SKIN ERUPTIONS. . ASSESSMENTS LUMBAR POST-LAMINECTOMY SYNDROME - M96.1 (PRIMARY) TREATMENT LUMBAR POST-LAMINECTOMY SYNDROME CLINICAL NOTES: 47 YEAR OLD MALE IN FOR WORKERS COMP CHRONIC PAIN FOLLOW UP. HE ADMITS THE MEDICATIONS CONTINUE TO WORK WELL FOR HIM AND HE DENIES MED SIDE EFFECTS. GIVEN PRESENTING SYMPTOMS AND RESULTS OF PHYSICAL EXAMINATION RECOMMENDED CONTINUATION OF CURRENT MEDICATION REGIMEN WITH FOLLOW UP IN 3 MONTHS. PATIENT HAS EXPRESSED UNDERSTANDING OF AND WAS IN AGREEMENT WITH [place] PLAN. , ISTOP REGISTRY REVIEWED AND DEMONSTRATES COMPLLIANCE. (REF #[id number] ) BRINGS IN MEDICATIONS WHICH IS APPROPRIATE FOR WHAT WAS DISPENSED. RECENT URINE TOXICOLOGY REVIEWED. NO UNAUTHORIZED MEDICATIONS. NO ILLICIT SUBSTANCES AND PRESCRIBED MEDICATIONS WERE PRESENT. , RISKS AND BENEFITS OF NARCOTIC/OPIOD MEDICATIONS WERE REVIEWED WITH PATIENT - THIS INCLUDES BUT IS NOT LIMITED TO RISK OF DEPENDANCE/DEVELOPMENT OF ADDICTION, MOOD DISTURBANCE AND DEPRESSION, OSTEOPOROSIS, HORMONAL AND LABIDAL CHANGES, RESPIRATORY DEPRESSION AND . PATIENT IS ADVISED NOT TO DRIVE OR DRINK ALCOHOL WHILE ON THESE MEDICATIONS. OTHERS REFILL TRAMADOL HCL TABLET, 50 MG, 1 TO 2 TABLETS, ORALLY FOR PAIN, EVERY 4 HOURS PRN PAIN MDD=6 WORKERS COMP REFILL CARISOPRODOL TABLET, 350 MG, 1 TABLET, ORALLY, DAILY NEEDED FOR SPASMS AND PAIN MDD1 PROCEDURES PN WORKMANS' COMP OPINION IN YOUR OPINION, WAS THE INCIDENT THAT THE PATIENT DESCRIBED THE COMPETENT MEDICAL CAUSE OF THIS INJURY/ILLNESS? YES ARE THE PATIENT'S COMPLAINTS CONSISTENT WITH HIS/HER HISTORY OF THE INJURY/ILLNESS? YES IS THE PATIENT'S HISTORY OF THE INJURY/ILLNESS CONSISTENT WITH YOUR OBJECTIVE FINDING? YES WHAT IS THE PERCENTAGE OF TEMPORARY IMPAIRMENT? MODERATE TO MARKED = 66.7% IS THE PATIENT WORKING? YES DOCTOR ON SITE: PRO BELL MD PROCEDURE CODES FA211 ESTABILISHED PATIENT [facility] CHARGE DISPOSITION & COMMUNICATION FOLLOW UP 3 MONTHS (REASON: W/C CHRONIC PAIN ) ELECTRONICALLY SIGNED BY JIMI LOJA ON 11/13/2018 AT 12:36 PM EDT DISCLAIMER : THIS IS A VISIT SUMMARY EXTRACTED FROM THE [employer] some [employer] CHART. IT IS NOT A COPY OF THE [employer] some [employer] PROGRESS NOTE. MACIEJ
== END ==
LOC: M PAIN 09:00
PROVIDERS: ATTEND Family Medicine
DX: M96.1 Postlaminectomy syndrome, not elsewhere classified (principal); M54.5 Low back pain; G89.29 Other chronic pain

== ENCOUNTER → 2019-01-20 | Outpatient (CLI) | payer OTHER ==
--- NOTE | 2019-01-22 00:56 | ECWPNPC ---
PATIENT NAME: SAY RIOS : 1970 GENDER: MALE VISIT DATE: 01/20/2019 DISCHARGE DATE: 01/20/19914 VISIT LOCKED DATE TIME: PHYSICIAN: KRISHAN ROCHA RESOURCE: KRISHAN ROCHA REASON FOR APPOINTMENT 1. WC CHRONIC PAIN HISTORY OF PRESENT ILLNESS HISTORY OF PRESENT ILLNESS: PAIN THE PATIENT DESCRIBES THE PAIN... THE PATIENT DESCRIBES THE PAIN... THE PATIENT DESCRIBES THE PAIN... 47 YEAR OLD MALE PATIENT WITH A HISTORY OF CHRONIC LOW BACK PAIN. THE PATIENT DESCRIBES THE PAIN ACHING, SORE, TENDER, SHARP, STABBING, SHOOTING, AND CONTINUOUS WITH A PAIN SCORE OF 7.5/10 DEPENDING ON PHYSICAL ACTIVITY. THE PATIENT WAS HURT IN A WORK RELATED INJURY ON 09/17/2009 WHILE WORKING FOR [employer] WHEN HE WAS WEED WHACKING AND INJURED HIS BACK. THE PATIENT SAYS HE HAD BACK SURGERY IN 2010, BUT HIS PAIN PERSISTED. THE PATIENT HAS TRIED PHYSICAL THERAPY IN THE PAST, BUT SAYS IT DID NOT HELP. THE PATIENT HAS MAINLY BEEN USING MEDICATION MANAGEMENT TO CONTROL HIS PAIN. THE PATIENT IS CURRENTLY USING TRAMADOL AND SOMA TO AID IN PAIN RELIEF. FALL RISK SCREENING: SCREENING :NO FALLS REPORTED IN THE LAST YEAR CURRENT MEDICATIONS TAKING VITAMIN D-3 5000 UNIT TABLET ORALLY BID TAKING LORATADINE 10 MG TABLET 1 TABLET ORALLY DIRECTED TAKING OMEPRAZOLE 20 MG CAPSULE DELAYED RELEASE 1 CAPSULES ORALLY ONCE A DAY NEEDED TAKING ATORVASTATIN CALCIUM 80 MG TABLET 1 TABLET ORALLY ONCE A DAY TAKING LISINOPRIL 5 MG TABLET 1 TABLET ORALLY ONCE A DAY TAKING COQ10 100 MG CAPSULE 1 CAPSULE WITH A MEAL ORALLY ONCE A DAY TAKING METOPROLOL TARTRATE 25 MG TABLET 1/2 TABLET WITH FOOD ORALLY TWICE A DAY TAKING MULTIVITAMIN - TABLET CHEWABLE ORALLY TAKING ASPIRIN 81 81 MG TABLET CHEWABLE 1 TABLET ORALLY ONCE A DAY TAKING TRAMADOL HCL 50 MG TABLET 1 TO 2 TABLETS ORALLY FOR PAIN EVERY 4 HOURS PRN PAIN MDD=6 WORKERS COMP TAKING CARISOPRODOL 350 MG TABLET 1 TABLET ORALLY DAILY NEEDED FOR SPASMS AND PAIN MDD1 NOT-TAKING FLOMAX 0.4 MG CAPSULE 1 CAPSULE ORALLY ONCE A DAY NOT-TAKING CLOPIDOGREL BISULFATE 75 MG TABLET 1 TABLET ORALLY ONCE A DAY NOT-TAKING ATORVASTATIN CALCIUM 20 MG TABLET 1 TABLET ORALLY ONCE A DAY NOT-TAKING PRILOSEC 20 MG CAPSULE DELAYED RELEASE 1 CAPSULE ORALLY ONCE A DAY MEDICATION LIST REVIEWED AND RECONCILED WITH THE PATIENT PAST MEDICAL HISTORY 10/08/16 [place] CHRONIC BACK PAIN HYPERCHOLESTEROLEMIA KIDNEY STONE ALLERGIES N.K.D.A. SURGICAL HISTORY SINUS,BACK,RIGHT SHOULDER,TONSILLECTOMY CARDIAC STENT 10/08/16 LEFT KIDNEY STENT 08/2018 FAMILY HISTORY FATHER: ALIVE, DIAGNOSED WITH OTHER MALIGNANT NEOPLASM OF UNSPECIFIED SITE MOTHER: ALIVE, UNSPECIFIED HEART DISEASE 1 SISTER(S) - HEALTHY. SOCIAL HISTORY GENERAL: TOBACCO USE ARE YOU A:FORMER SMOKER HOW LONG HAS IT BEEN SINCE YOU LAST SMOKED?5-10 YEARS PAIN CLINIC PFS, CLERGY, PUBLIC HEALTH REFERRALS PFS REFERRAL NEEDED?NO CLERGY REFERRAL NEEDED?NO PUBLIC HEALTH REFERRAL NEEDED?NO HAS THE PATIENT BEEN EDUCATED REGARDING HIS/HER PLAN OF CARE?YES HAS THE PATIENT BEEN EDUCATED REGARDING PAIN, THE RISK FOR PAIN, THE IMPORTANCE OF EFFECTIVE PAIN MANAGEMENT, AND THE PAIN ASSESSMENT PROCESS?YES LATEX QUESTIONNAIRE LATEX ALLERGY : HAVE YOU EVER DEVELOPED ANY TYPE OF REACTION AFTER HANDLING LATEX PRODUCTS SUCH RUBBER GLOVES, CONDOMS, DIAPHRAGMS, BALLOONS, SOCKS, OR UNDERWEAR?NO LATEX ALLERGY : HAVE YOU EVER DEVELOPED ANY TYPE OF REACTION DURING OR AFTER DENTAL APPOINTMENT, VAGINAL/RECTAL EXAMINATION, SURGICAL PROCEDURE, OR ANY OTHER EXPOSURE?NO DATE ASKED : 07/08/2018 LATEX RISK : HAVE YOU EVER HAD ANY DIFFICULTY BREATHING OR HIVES AFTER EATING OR HANDLING ANY FRUITS, OR VEGETABLES; SUCH KIWI, BANANAS, STONE FRUITS, OR CHESTNUTSNO LATEX RISK : DO YOU HAVE A PREVIOUS PERSONAL HISTORY OF MORE THAN NINE SURGERIES, SPINA BIFIDA, OR REPEATED CATHERIZATIONS? NO LATEX RISK : ARE YOU FREQUENTLY EXPOSED TO LATEX PRODUCTS IN YOUR OCCUPATION?NO OTHERS AT HOME: SPOUSE. ADVANCE DIRECTIVE ADVANCE DIRECTIVE DISCUSSED WITH PATIENT:YES DECLINED HCP INFORMATION. LATTER-DAY [id number] BAPTISM LANGUAGE LANGUAGES SPOKEN:BAHAMIAN MARITAL STATUS: . ALCOHOL SCREENING DID YOU HAVE A DRINK CONTAINING ALCOHOL IN THE PAST YEAR?NO POINTS0 INTERPRETATIONNEGATIVE RECREATIONAL DRUG USE DRUG USE?NO OCCUPATION: DISABILITY. LEARNING BARRIERS / SPECIAL NEEDS BARRIERS TO LEARNING?NO HEARING IMPAIRED?NO VISION IMPAIRED?NO COGNITIVELY IMPAIRED?NO READINESS TO LEARN?YES LEARNING PREFERENCES?NO LEARNING CAPABILITIES PRESENT?YES EMOTIONAL BARRIERS?NO SPECIAL DEVICES?NO PIPE FINISHER NEEDED?NO REVIEWED WITH PT, 01/31/18 1020 LASREVIEWED WITH PATIENT 07/08/18 0902 JS. HOSPITALIZATION/MAJOR DIAGNOSTIC PROCEDURE [place] KIDNEY STONE 08/2018 REVIEW OF SYSTEMS REVIEWED BY: PROVIDER: SAY ROCHA BABY ATTENDANT-Paula . CONSTITUTIONAL: ANY CHANGE IN YOUR MEDICAL CONDITION? NO . CHILLS NO . FEVER NO . INFECTION: DO YOU HAVE NEW INFECTIONS? NO . DO YOU HAVE HISTORY OF MRSA? NO . MUSCULOSKELETAL: ANY NEW PATTERNS OF PAIN OR NUMBNESS? NO . GASTROENTEROLOGY: ANY NEW CHANGE IN BOWEL CONTROL? NO . GENITOURINARY: ANY NEW CHANGE IN BLADDER CONTROL? NO . IS THERE A CHANCE YOU COULD BE ? NO . HEMATOLOGY/LYMPH: DO YOU TAKE ANY BLOOD THINNERS? (FOR EXAMPLE- COUMADIN, PLAVIX, AGGRENOX, PLATEL, PRADAXA, OR XARELTO) NO . WHEN WAS YOUR LAST DOSE? DATE: TIME: . NEUROLOGY: HAVE YOU FALLEN IN THE PAST 12 MONTHS? NO . ANY NEW EXTREMITY NUMBNESS OR WEAKNESS? NO . CARDIOLOGY: DO YOU HAVE A PACEMAKER OR DEFIBRILLATOR? NO . RESPIRATORY: HAVE YOU BEEN SICK IN THE PAST WEEK? NO . FEVER NO . FLU LIKE SYMPTOMS? NO . COUGH NO . INTEGUMENTARY: DO YOU HAVE ANY RASHES OR OPEN SORES? NO . ALLERGIC/IMMUNO: ARE YOU ALLERGIC TO IV DYE? NO . ANY NEW ALLERGIES? NO . PSYCHIATRIC: DO YOU HAVE THOUGHTS OF HURTING YOURSELF OR SOMEONE ELSE? NO . ARE YOU ABUSED, NEGLECTED, OR IN AN UNSAFE ENVIRONMENT? NO . ENDOCRINOLOGY: ARE YOU DIABETIC? NO . OTHER: DO YOU NEED ANY PRESCRIPTIONS? YES, TRAMADOL AND SOMA . IF YES, PLEASE LIST: ____ . ANY NEW PROBLEMS WITH YOUR MEDICATIONS? NO . WHEN DID YOU LAST EAT? ____ . WHEN DID YOU LAST DRINK? ____ . WHAT DID YOU LAST DRINK? ____ . NAME OF PERSON DRIVING YOU HOME? ____ . DO YOU HAVE ANY OTHER QUESTIONS OR CONCERNS NO . VITAL SIGNS WT 229.8 LBS, HT 6'1", BMI 30.32 INDEX, BP 132/73 MM HG, HR 55 /MIN, RR 16 /MIN, TEMP 98.5 F, OXYGEN SAT % 99%, NA INITIALS AW 0851, REVIEWED BY: EM. EXAMINATION GENERAL EXAMINATION: GENERALNO ACUTE DISTRESS, WELL NOURISHED AND HYDRATED. PSYCHAPPROPRIATE MOOD AND AFFECT . LUNGS:CLEAR TO AUSCULTATION BILATERALLY, NO WHEEZES, RHONCHI, RALES. HEART:NO MURMURS, REGULAR RATE AND RHYTHM. ASSESSMENTS LUMBAR POST-LAMINECTOMY SYNDROME - M96.1 (PRIMARY) LUMBAR RADICULOPATHY - M54.16 TREATMENT LUMBAR POST-LAMINECTOMY SYNDROME REFILL TRAMADOL HCL TABLET, 50 MG, 1 TO 2 TABLETS, ORALLY FOR PAIN, EVERY 4 HOURS PRN PAIN MDD=6 WORKERS COMP, 30 DAYS, 175 REFILL CARISOPRODOL TABLET, 350 MG, 1 TABLET, ORALLY, DAILY NEEDED FOR SPASMS AND PAIN MDD1, 30 DAYS, 30 CLINICAL NOTES: 48-YEAR-OLD MALE IN FOR WORKMEN'S COMP. CHRONIC PAIN FOLLOW-UP. GIVEN PRESENTING SYMPTOMS AND RESULTS PHYSICAL EXAMINATION RECOMMENDED CONTINUATION OF CURRENT MEDICATION REGIMEN WITH FOLLOW-UP IN 2 MONTHS. PATIENT IS TO HAVE AN MRI AND WE WILL FOLLOW-UP WITH THAT AT THE NEXT VISIT. PATIENT HAS EXPRESSED UNDERSTANDING OF AND WAS IN AGREEMENT WITH TREATMENT PLAN. GIVEN TIME TO ASK QUESTIONS AND EXPRESS CONCERNS., ISTOP REGISTRY REVIEWED AND DEMONSTRATES COMPLLIANCE. (REF # [id number] ) BRINGS IN MEDICATIONS WHICH IS APPROPRIATE FOR WHAT WAS DISPENSED. RECENT URINE TOXICOLOGY REVIEWED. NO UNAUTHORIZED MEDICATIONS. NO ILLICIT SUBSTANCES AND PRESCRIBED MEDICATIONS WERE PRESENT. PROCEDURES PN WORKMANS' COMP OPINION IN YOUR OPINION, WAS THE INCIDENT THAT THE PATIENT DESCRIBED THE COMPETENT MEDICAL CAUSE OF THIS INJURY/ILLNESS? YES ARE THE PATIENT'S COMPLAINTS CONSISTENT WITH HIS/HER HISTORY OF THE INJURY/ILLNESS? YES IS THE PATIENT'S HISTORY OF THE INJURY/ILLNESS CONSISTENT WITH YOUR OBJECTIVE FINDING? YES WHAT IS THE PERCENTAGE OF TEMPORARY IMPAIRMENT? MODERATE TO MARKED = 66.7% IS THE PATIENT WORKING? YES DOCTOR ON SITE: PRO BELL MD PROCEDURE CODES FA211 ESTABILISHED PATIENT [facility] CHARGE DISPOSITION & COMMUNICATION FOLLOW UP 2 MONTHS (REASON: W/C CHRONIC PAIN ) ELECTRONICALLY SIGNED BY JIMI LOJA ON 01/21/2019 AT 08:38 AM EDT DISCLAIMER : THIS IS A VISIT SUMMARY EXTRACTED FROM THE [employer] CHART. IT IS NOT A COPY OF THE [employer] PROGRESS NOTE. MACIEJ
== END ==
LOC: M PAIN 08:45
PROVIDERS: ATTEND Family Medicine
DX: M96.1 Postlaminectomy syndrome, not elsewhere classified (principal); M54.16 Radiculopathy, lumbar region; E78.00 Pure hypercholesterolemia, unspecified; Z87.891 Personal history of nicotine dependence; Z79.82 Long term (current) use of aspirin; Z79.891 Long term (current) use of opiate analgesic; Z79.899 Other long term (current) drug therapy

== ENCOUNTER → 2019-07-03 | Outpatient (CLI) | payer OTHER ==
--- NOTE | 2019-07-05 07:18 | ECWPNPC ---
PATIENT NAME: SAY RIOS : 1970 GENDER: MALE VISIT DATE: 07/03/2019 DISCHARGE DATE: 07/03/19920 VISIT LOCKED DATE TIME: PHYSICIAN: KRISHAN ROCHA RESOURCE: KRISHAN ROCHA REASON FOR APPOINTMENT 1. LOW BACK PAIN HISTORY OF PRESENT ILLNESS HISTORY OF PRESENT ILLNESS: PAIN THE PATIENT DESCRIBES THE PAIN... 48-YEAR-OLD MALE IN FOR CHRONIC PAIN FOLLOW-UP. HE FEELS MEDICATIONS ARE WORKING WELL AND DENIES MED SIDE EFFECTS AT THIS TIME. HE RATES HIS PAIN CURRENTLY AT A 7 OUT OF 10 AND DESCRIBES IT ACHING, SHARP, BURNING, STABBING, SORE, SHOOTING, AND TENDER. FALL RISK SCREENING: SCREENING :NO FALLS REPORTED IN THE LAST YEAR CURRENT MEDICATIONS TAKING VITAMIN D-3 5000 UNIT TABLET ORALLY BID TAKING LORATADINE 10 MG TABLET 1 TABLET ORALLY DIRECTED TAKING OMEPRAZOLE 20 MG CAPSULE DELAYED RELEASE 1 CAPSULES ORALLY ONCE A DAY NEEDED TAKING ATORVASTATIN CALCIUM 80 MG TABLET 1 TABLET ORALLY ONCE A DAY TAKING LISINOPRIL 5 MG TABLET 1 TABLET ORALLY ONCE A DAY TAKING COQ10 100 MG CAPSULE 1 CAPSULE WITH A MEAL ORALLY ONCE A DAY TAKING METOPROLOL TARTRATE 25 MG TABLET 1/2 TABLET WITH FOOD ORALLY TWICE A DAY TAKING MULTIVITAMIN - TABLET CHEWABLE ORALLY TAKING ASPIRIN 81 81 MG TABLET CHEWABLE 1 TABLET ORALLY ONCE A DAY TAKING TRAMADOL HCL 50 MG TABLET 1 TO 2 TABLETS ORALLY FOR PAIN EVERY 4 HOURS PRN PAIN MDD=6 WORKERS COMP TAKING CARISOPRODOL 350 MG TABLET 1 TABLET ORALLY DAILY NEEDED FOR SPASMS AND PAIN MDD1 NOT-TAKING FLOMAX 0.4 MG CAPSULE 1 CAPSULE ORALLY ONCE A DAY NOT-TAKING CLOPIDOGREL BISULFATE 75 MG TABLET 1 TABLET ORALLY ONCE A DAY NOT-TAKING ATORVASTATIN CALCIUM 20 MG TABLET 1 TABLET ORALLY ONCE A DAY NOT-TAKING PRILOSEC 20 MG CAPSULE DELAYED RELEASE 1 CAPSULE ORALLY ONCE A DAY MEDICATION LIST REVIEWED AND RECONCILED WITH THE PATIENT PAST MEDICAL HISTORY 10/08/16 [place] CHRONIC BACK PAIN HYPERCHOLESTEROLEMIA KIDNEY STONE ALLERGIES N.K.D.A. SURGICAL HISTORY SINUS,BACK,RIGHT SHOULDER,TONSILLECTOMY CARDIAC STENT 10/08/16 LEFT KIDNEY STENT 08/2018 RIGHT SHOULDER REBUILT" 1999 FAMILY HISTORY FATHER: ALIVE, DIAGNOSED WITH OTHER MALIGNANT NEOPLASM OF UNSPECIFIED SITE MOTHER: ALIVE, UNSPECIFIED HEART DISEASE 1 SISTER(S) - HEALTHY. SOCIAL HISTORY GENERAL: TOBACCO USE ARE YOU A:FORMER SMOKER HOW LONG HAS IT BEEN SINCE YOU LAST SMOKED?5-10 YEARS PAIN CLINIC PFS, CLERGY, PUBLIC HEALTH REFERRALS PFS REFERRAL NEEDED?NO CLERGY REFERRAL NEEDED?NO PUBLIC HEALTH REFERRAL NEEDED?NO WAS THE PROVIDER NOTIFIED OF ANY PERTINENT INFO?YES HAS THE PATIENT BEEN EDUCATED REGARDING HIS/HER PLAN OF CARE?YES HAS THE PATIENT BEEN EDUCATED REGARDING PAIN, THE RISK FOR PAIN, THE IMPORTANCE OF EFFECTIVE PAIN MANAGEMENT, AND THE PAIN ASSESSMENT PROCESS?YES LATEX QUESTIONNAIRE LATEX ALLERGY : HAVE YOU EVER DEVELOPED ANY TYPE OF REACTION AFTER HANDLING LATEX PRODUCTS SUCH RUBBER GLOVES, CONDOMS, DIAPHRAGMS, BALLOONS, SOCKS, OR UNDERWEAR?NO LATEX ALLERGY : HAVE YOU EVER DEVELOPED ANY TYPE OF REACTION DURING OR AFTER DENTAL APPOINTMENT, VAGINAL/RECTAL EXAMINATION, SURGICAL PROCEDURE, OR ANY OTHER EXPOSURE?NO DATE ASKED : 04/03/2019 LATEX RISK : HAVE YOU EVER HAD ANY DIFFICULTY BREATHING OR HIVES AFTER EATING OR HANDLING ANY FRUITS, OR VEGETABLES; SUCH KIWI, BANANAS, STONE FRUITS, OR CHESTNUTSNO LATEX RISK : DO YOU HAVE A PREVIOUS PERSONAL HISTORY OF MORE THAN NINE SURGERIES, SPINA BIFIDA, OR REPEATED CATHERIZATIONS? NO LATEX RISK : ARE YOU FREQUENTLY EXPOSED TO LATEX PRODUCTS IN YOUR OCCUPATION?NO OTHERS AT HOME: SPOUSE. ADVANCE DIRECTIVE ADVANCE DIRECTIVE DISCUSSED WITH PATIENT:YES DECLINED HCP INFORMATION, DECLINED ASSISTANCE WITH PAPERWORK. DS CHURCH [id number] RELIGIOUS LANGUAGE LANGUAGES SPOKEN:SYRIAC MARITAL STATUS: . ALCOHOL SCREENING DID YOU HAVE A DRINK CONTAINING ALCOHOL IN THE PAST YEAR?NO POINTS0 INTERPRETATIONNEGATIVE RECREATIONAL DRUG USE DRUG USE?NO OCCUPATION: DISABILITY. LEARNING BARRIERS / SPECIAL NEEDS BARRIERS TO LEARNING?NO HEARING IMPAIRED?NO VISION IMPAIRED?NO COGNITIVELY IMPAIRED?NO READINESS TO LEARN?YES LEARNING PREFERENCES?NO LEARNING CAPABILITIES PRESENT?YES EMOTIONAL BARRIERS?NO SPECIAL DEVICES?NO CITY WEIGHMASTER NEEDED?NO REVIEWED WITH PT, 01/31/18 1020 LASREVIEWED WITH PATIENT 07/08/18 0938 JSREVIEWED WITH PATIENT 04-03-19 DS. HOSPITALIZATION/MAJOR DIAGNOSTIC PROCEDURE [place] KIDNEY STONE 08/2018 REVIEW OF SYSTEMS REVIEWED BY: PROVIDER: SAY APONTE . CONSTITUTIONAL: ANY CHANGE IN YOUR MEDICAL CONDITION? NO . CHILLS NO . FEVER NO . INFECTION: DO YOU HAVE NEW INFECTIONS? NO . DO YOU HAVE HISTORY OF MRSA? NO . MUSCULOSKELETAL: ANY NEW PATTERNS OF PAIN OR NUMBNESS? NO . GASTROENTEROLOGY: ANY NEW CHANGE IN BOWEL CONTROL? NO . GENITOURINARY: ANY NEW CHANGE IN BLADDER CONTROL? NO . IS THERE A CHANCE YOU COULD BE ? NO . HEMATOLOGY/LYMPH: DO YOU TAKE ANY BLOOD THINNERS? (FOR EXAMPLE- COUMADIN, PLAVIX, AGGRENOX, PLATEL, PRADAXA, OR XARELTO) NO . WHEN WAS YOUR LAST DOSE? DATE: TIME: . NEUROLOGY: HAVE YOU FALLEN IN THE PAST 12 MONTHS? NO . ANY NEW EXTREMITY NUMBNESS OR WEAKNESS? NO . CARDIOLOGY: DO YOU HAVE A PACEMAKER OR DEFIBRILLATOR? NO . RESPIRATORY: HAVE YOU BEEN SICK IN THE PAST WEEK? NO . FEVER NO . FLU LIKE SYMPTOMS? NO . COUGH NO . INTEGUMENTARY: DO YOU HAVE ANY RASHES OR OPEN SORES? NO . ALLERGIC/IMMUNO: ARE YOU ALLERGIC TO IV DYE? NO . ANY NEW ALLERGIES? NO . PSYCHIATRIC: DO YOU HAVE THOUGHTS OF HURTING YOURSELF OR SOMEONE ELSE? NO . ARE YOU ABUSED, NEGLECTED, OR IN AN UNSAFE ENVIRONMENT? NO . ENDOCRINOLOGY: ARE YOU DIABETIC? NO . OTHER: DO YOU NEED ANY PRESCRIPTIONS? NO . IF YES, PLEASE LIST: ____ . ANY NEW PROBLEMS WITH YOUR MEDICATIONS? NO . WHEN DID YOU LAST EAT? ____ . WHEN DID YOU LAST DRINK? ____ . WHAT DID YOU LAST DRINK? ____ . NAME OF PERSON DRIVING YOU HOME? ____ . DO YOU HAVE ANY OTHER QUESTIONS OR CONCERNS NO . VITAL SIGNS WT 224 LBS, HT 6'1", BMI 29.55 INDEX, BP 135/54 MM HG, HR 52 /MIN, RR 18 /MIN, TEMP 97.2 F, OXYGEN SAT % 98, SAFE IN ENV? (Y/N) Y, REVIEWED BY: KG. EXAMINATION GENERAL EXAMINATION: GENERALNO ACUTE DISTRESS, WELL NOURISHED AND HYDRATED. PSYCHAPPROPRIATE MOOD AND AFFECT . LUNGS:CLEAR TO AUSCULTATION BILATERALLY, NO WHEEZES, RHONCHI, RALES. HEART:NO MURMURS, REGULAR RATE AND RHYTHM. ASSESSMENTS POSTLAMINECTOMY SYNDROME, NOT ELSEWHERE CLASSIFIED - M96.1 (PRIMARY) TREATMENT POSTLAMINECTOMY SYNDROME, NOT ELSEWHERE CLASSIFIED CLINICAL NOTES: 48-YEAR-OLD MALE IN FOR CHRONIC PAIN FOLLOW-UP. GIVEN PRESENTING SYMPTOMS AND RESULTS OF PHYSICAL EXAMINATION RECOMMENDED CONTINUATION OF CURRENT MEDICATION REGIMEN WITH FOLLOW-UP IN 3 MONTHS. PATIENT HAS EXPRESSED UNDERSTANDING OF AND WAS IN AGREEMENT WITH TREATMENT PLAN. GIVEN TIME TO ASK QUESTIONS AND EXPRESS CONCERNS., ISTOP REGISTRY REVIEWED AND DEMONSTRATES COMPLLIANCE. (REF # [id number] ) BRINGS IN MEDICATIONS WHICH IS APPROPRIATE FOR WHAT WAS DISPENSED. RECENT URINE TOXICOLOGY REVIEWED. NO UNAUTHORIZED MEDICATIONS. NO ILLICIT SUBSTANCES AND PRESCRIBED MEDICATIONS WERE PRESENT. PROCEDURE CODES FA211 ESTABILISHED PATIENT [facility] CHARGE DISPOSITION & COMMUNICATION FOLLOW UP 3 MONTHS (REASON: BACK PAIN) ELECTRONICALLY SIGNED BY JIMI LOJA ON 07/04/2019 AT 08:34 AM EDT DISCLAIMER : THIS IS A VISIT SUMMARY EXTRACTED FROM THE [employer] CHART. IT IS NOT A COPY OF THE [employer]APE PROGRESS NOTE. JAND
== END ==
LOC: M PAIN 08:45
PROVIDERS: ATTEND Family Medicine
DX: M96.1 Postlaminectomy syndrome, not elsewhere classified (principal); I25.2 Old myocardial infarction; E78.00 Pure hypercholesterolemia, unspecified; Z87.891 Personal history of nicotine dependence; Z79.82 Long term (current) use of aspirin; Z79.891 Long term (current) use of opiate analgesic; Z79.899 Other long term (current) drug therapy

== ENCOUNTER → 2019-10-20 | Outpatient (CLI) | payer OTHER ==
--- NOTE | 2019-10-22 05:09 | ECWPNPC ---
PATIENT NAME: SAY RIOS : 1970 GENDER: MALE VISIT DATE: 10/20/2019 DISCHARGE DATE: 10/20/19917 VISIT LOCKED DATE TIME: PHYSICIAN: KRISHAN ROCHA RESOURCE: KRISHAN ROCHA REASON FOR APPOINTMENT 1. W/C BACK PAIN HISTORY OF PRESENT ILLNESS GENERAL: - 48-YEAR-OLD MALE IN FOR WORKER'S COMP. CHRONIC PAIN FOLLOW-UP. HE RATES HIS PAIN CURRENTLY AT A 6-7 OUT OF 10 AND DESCRIBES IT A KNOT FEELING. 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 THE PATIENT STATES HIS PAIN BEGINS IN HIS LOW BACK AND RADIATES DOWN HIS LEGS, BUT HIS RIGHT LEG IS AFFECTED MORE. FALL RISK SCREENING: SCREENING :NO FALLS REPORTED IN THE LAST YEAR PAIN SCREENING: PATIENT HAS A COMPLAINT OF ACUTE OR CHRONIC PAIN :YES LOCATION OF PAIN:LOW BACK INTENSITY OF PAIN (SCALE OF 1 TO 10):7 WHAT DOES YOUR PAIN FEEL LIKE:ACHING, BURNING, CONTINOUS, SHARP, STABBING, THROBBING, SHOOTING DURATION:CONTINOUS, CONSTANT, ALL DAY PAIN IS INCREASED BY:ACTIVITIES, PROLONGED STANDING PAIN IS DECREASED BY:USE OF PAIN MEDICATIONS PAIN HAS INTERFERED WITH THE FOLLOWING:MOOD, WALKING ABILITY, HOUSEWORK, RELATIONSHIP WITH OTHERS, ENJOYMENT OF LIFE PLAN/GOALS/TREATMENT/INTERVENTION/FOLLOW UP:SEE PLAN NURSING NOTE: -. PAIN CENTER INTAKE QUESTIONS: DO YOU HAVE A HISTORY OF MRSA? :NO DO YOU TAKE A BLOOD THINNERS? :NO DO YOU HAVE ANY BLEEDING DISORDERS? :NO ANY NEW NUMBNESS OR WEAKNESS IN YOUR LEGS OR ARMS? :NO ANY PACEMAKER,DEFIBRILLATOR, OR DORSAL COLUMN STIMULATOR? :NO DO YOU HAVE ANY RASHES OR OPEN SORES? :NO ARE YOU ALLERGIC TO IV DYE? :NO ARE YOU DIABETIC? :NO ANY NEW PROBLEMS WITH YOUR MEDICATIONS? :NO HAVE YOU RECEIVED A VACCINE IN THE PAST 30 DAYS? :NO DO YOU PLAN TO RECEIVE A VACCINE IN THE NEXT 21 DAYS? :NO DO YOU NEED ANY PRESCRIPTION? :YES TRAMADOL, CARISOPRODOL DO YOU TAKE ANY IMMUNOSUPPRESSIVE MEDICATIONS? :NO IS THERE A CHANCE YOU COULD BE ? :NO ARE YOU BREAST FEEDING? :NO CURRENT MEDICATIONS TAKING VITAMIN D-3 5000 UNIT TABLET ORALLY BID TAKING LORATADINE 10 MG TABLET 1 TABLET ORALLY DIRECTED TAKING OMEPRAZOLE 20 MG CAPSULE DELAYED RELEASE 1 CAPSULES ORALLY ONCE A DAY NEEDED TAKING ATORVASTATIN CALCIUM 80 MG TABLET 1 TABLET ORALLY ONCE A DAY TAKING LISINOPRIL 5 MG TABLET 1 TABLET ORALLY ONCE A DAY TAKING COQ10 100 MG CAPSULE 1 CAPSULE WITH A MEAL ORALLY ONCE A DAY TAKING METOPROLOL TARTRATE 25 MG TABLET 1/2 TABLET WITH FOOD ORALLY TWICE A DAY TAKING MULTIVITAMIN - TABLET CHEWABLE ORALLY TAKING ASPIRIN 81 81 MG TABLET CHEWABLE 1 TABLET ORALLY ONCE A DAY TAKING TRAMADOL HCL 50 MG TABLET 1 TO 2 TABLETS ORALLY FOR PAIN EVERY 4 HOURS PRN PAIN MDD=6 WORKERS COMP TAKING CARISOPRODOL 350 MG TABLET 1 TABLET ORALLY DAILY NEEDED FOR SPASMS AND PAIN MDD1 NOT-TAKING FLOMAX 0.4 MG CAPSULE 1 CAPSULE ORALLY ONCE A DAY NOT-TAKING CLOPIDOGREL BISULFATE 75 MG TABLET 1 TABLET ORALLY ONCE A DAY NOT-TAKING ATORVASTATIN CALCIUM 20 MG TABLET 1 TABLET ORALLY ONCE A DAY NOT-TAKING PRILOSEC 20 MG CAPSULE DELAYED RELEASE 1 CAPSULE ORALLY ONCE A DAY MEDICATION LIST REVIEWED AND RECONCILED WITH THE PATIENT PAST MEDICAL HISTORY 10/08/16 [place] CHRONIC BACK PAIN HYPERCHOLESTEROLEMIA KIDNEY STONE ALLERGIES N.K.D.A. SURGICAL HISTORY SINUS,BACK,RIGHT SHOULDER,TONSILLECTOMY CARDIAC STENT 10/08/16 LEFT KIDNEY STENT 08/2018 RIGHT SHOULDER REBUILT" 1999 FAMILY HISTORY FATHER: ALIVE, DIAGNOSED WITH OTHER MALIGNANT NEOPLASM OF UNSPECIFIED SITE MOTHER: ALIVE, UNSPECIFIED HEART DISEASE 1 SISTER(S) - HEALTHY. SOCIAL HISTORY GENERAL: TOBACCO USE ARE YOU A:FORMER SMOKER HOW LONG HAS IT BEEN SINCE YOU LAST SMOKED?5-10 YEARS LATEX QUESTIONNAIRE LATEX ALLERGY : HAVE YOU EVER DEVELOPED ANY TYPE OF REACTION AFTER HANDLING LATEX PRODUCTS SUCH RUBBER GLOVES, CONDOMS, DIAPHRAGMS, BALLOONS, SOCKS, OR UNDERWEAR?NO LATEX ALLERGY : HAVE YOU EVER DEVELOPED ANY TYPE OF REACTION DURING OR AFTER DENTAL APPOINTMENT, VAGINAL/RECTAL EXAMINATION, SURGICAL PROCEDURE, OR ANY OTHER EXPOSURE?NO LATEX RISK : HAVE YOU EVER HAD ANY DIFFICULTY BREATHING OR HIVES AFTER EATING OR HANDLING ANY FRUITS, OR VEGETABLES; SUCH KIWI, BANANAS, STONE FRUITS, OR CHESTNUTSNO LATEX RISK : DO YOU HAVE A PREVIOUS PERSONAL HISTORY OF MORE THAN NINE SURGERIES, SPINA BIFIDA, OR REPEATED CATHERIZATIONS? NO LATEX RISK : ARE YOU FREQUENTLY EXPOSED TO LATEX PRODUCTS IN YOUR OCCUPATION?NO DATE ASKED : 10/20/2019 ALCOHOL SCREENING DID YOU HAVE A DRINK CONTAINING ALCOHOL IN THE PAST YEAR?NO POINTS0 INTERPRETATIONNEGATIVE RECREATIONAL DRUG USE DRUG USE?NO AMISH [id number] ZOROASTRIAN LANGUAGE LANGUAGES SPOKEN:GERMAN LEARNING BARRIERS / SPECIAL NEEDS BARRIERS TO LEARNING?NO HEARING IMPAIRED?NO VISION IMPAIRED?NO COGNITIVELY IMPAIRED?NO READINESS TO LEARN?YES LEARNING PREFERENCES?NO LEARNING CAPABILITIES PRESENT?YES EMOTIONAL BARRIERS?NO SPECIAL DEVICES?NO WILDLIFE CONSERVATION PROFESSOR NEEDED?NO OCCUPATION: DISABILITY. MARITAL STATUS: . OTHERS AT HOME: SPOUSE. PAIN CLINIC PFS, CLERGY, PUBLIC HEALTH REFERRALS PFS REFERRAL NEEDED?NO CLERGY REFERRAL NEEDED?NO PUBLIC HEALTH REFERRAL NEEDED?NO WAS THE PROVIDER NOTIFIED OF ANY PERTINENT INFO?YES HAS THE PATIENT BEEN EDUCATED REGARDING HIS/HER PLAN OF CARE?YES HAS THE PATIENT BEEN EDUCATED REGARDING PAIN, THE RISK FOR PAIN, THE IMPORTANCE OF EFFECTIVE PAIN MANAGEMENT, AND THE PAIN ASSESSMENT PROCESS?YES ADVANCE DIRECTIVE ADVANCE DIRECTIVE DISCUSSED WITH PATIENT:YES DECLINED HCP INFORMATION, DECLINED ASSISTANCE WITH PAPERWORK. DS HOSPITALIZATION/MAJOR DIAGNOSTIC PROCEDURE [place] KIDNEY STONE 08/2018 REVIEW OF SYSTEMS CONSTITUTIONAL: ANY RECENT FEVER NO . CHILLS NO . WEIGHT CHANGE OF UNKNOWN REASONS NO . GASTROENTEROLOGY: NEW UNEXPLAINABLE CHANGES IN BOWEL CONTROL NO . CONSTIPATION NO . GENITOURINARY: ANY NEW CHANGE IN BLADDER CONTROL? NO . NEUROLOGY: NEW ONSET DIZZINESS OR NEUROLOGICAL CHANGES NOT MENTIONED NO . NEW NUMBNESS OR PAIN PATTERNS NOT MENTIONED AND PERTINENT TO TODAY'S VISIT NO . CARDIOLOGY: NEW CHEST PRESSURE NO . NEW CHEST PAIN NO . RESPIRATORY: UNEXPLAINABLE COUGH NO . NEW SHORTNESS OF BREATH NO . VITAL SIGNS WT 220.0 LBS, HT 6'1", BMI 29.02 INDEX, BP 131/74 MM HG, HR 61 /MIN, RR 18 /MIN, TEMP 98.0 F, OXYGEN SAT % 99%, SAFE IN ENV? (Y/N) Y, NA INITIALS AW [id number] ASUMADU DIE REAMER. EXAMINATION GENERAL EXAMINATION: GENERALNO ACUTE DISTRESS, WELL NOURISHED AND HYDRATED. PSYCHAPPROPRIATE MOOD AND AFFECT . LUNGS:CLEAR TO AUSCULTATION BILATERALLY, NO WHEEZES, RHONCHI, RALES. HEART:NO MURMURS, REGULAR RATE AND RHYTHM. 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 GIVEN PRESENTING SYMPTOMS RECOMMENDED CONTINUATION OF CURRENT MEDICATION REGIMEN WITH FOLLOW-UP IN 3 MONTHS. PATIENT HAS EXPRESSED UNDERSTANDING OF AND WAS IN AGREEMENT WITH TREATMENT PLAN. GIVEN TIME TO ASK QUESTIONS AND EXPRESS CONCERNS. , [employer] REGISTRY REVIEWED AND DEMONSTRATES COMPLLIANCE. (REF # [id number] ) BRINGS IN MEDICATIONS WHICH IS APPROPRIATE FOR WHAT WAS DISPENSED. RECENT URINE TOXICOLOGY REVIEWED. NO UNAUTHORIZED MEDICATIONS. NO ILLICIT SUBSTANCES AND PRESCRIBED MEDICATIONS WERE PRESENT. PROCEDURES PN WORKMANS' COMP OPINION IN YOUR OPINION, WAS THE INCIDENT THAT THE PATIENT DESCRIBED THE COMPETENT MEDICAL CAUSE OF THIS INJURY/ILLNESS? YES ARE THE PATIENT'S COMPLAINTS CONSISTENT WITH HIS/HER HISTORY OF THE INJURY/ILLNESS? YES IS THE PATIENT'S HISTORY OF THE INJURY/ILLNESS CONSISTENT WITH YOUR OBJECTIVE FINDING? YES WHAT IS THE PERCENTAGE OF TEMPORARY IMPAIRMENT? MODERATE TO MARKED = 66.7% IS THE PATIENT WORKING? YES DOCTOR ON SITE: [facility] MD PROCEDURE CODES [id number] ESTABILISHED PATIENT [facility] FACILITY CHARGE DISPOSITION & COMMUNICATION FOLLOW UP 3 MONTHS (REASON: BACK PAIN WORKER'S COMP.) ELECTRONICALLY SIGNED BY JIMI LOJA ON 10/21/2019 AT 07:43 AM EDT DISCLAIMER : THIS IS A VISIT SUMMARY EXTRACTED FROM THE [facility] CHART. IT IS NOT A COPY OF THE [facility] PROGRESS NOTE. MACIEJ
== END ==
LOC: M PAIN 08:45
PROVIDERS: ATTEND Family Medicine
DX: M96.1 Postlaminectomy syndrome, not elsewhere classified (principal); Z79.82 Long term (current) use of aspirin; Z79.891 Long term (current) use of opiate analgesic; Z79.899 Other long term (current) drug therapy; Z87.891 Personal history of nicotine dependence

== ENCOUNTER → 2019-11-12 | Outpatient (CLI) | payer OTHER ==
[~2019-11-12] MED LIST changes: +ASPI81TA86 PO; +CLAR10CA3 PO; +COQ-100C5 PO; +LISI-542 PO; +METO1TAB87 PO; +MULTCAP PO; +TRAM1CAP15 PO; +TRAM50TA2 PO
== END ==
LOC: M LABSMTC 09:34
PROVIDERS: ATTEND Anesthesiology
DX: Z20.828 Contact with and (suspected) exposure to other viral communicable diseases (principal); Z11.59 Encounter for screening for other viral diseases

== ENCOUNTER → 2019-12-31 | Outpatient (CLI) | payer OTHER | LOC: M LABSMTC 10:30 | PROVIDERS: ATTEND Anesthesiology | DX: Z01.812 Encounter for preprocedural laboratory examination (principal) | CPT/HCPCS: C9803; U0003 ==

== ENCOUNTER 2020-01-05 09:26 | Day surgery (SDC) | payer OTHER ==
[~2020-01-05] VITALS: Ht 185.4 cm; Wt 97.5 kg
[~2020-01-05 09:26] MED LIST changes: +NS 1,000 ML IV ONE
[2020-01-05] MEDS ORDERED: LIDOCAINE 2% 100MG/5ML SDV (FOR ANES.) As Ordered ONE (09:55)
[2020-01-05] MEDS ORDERED: propofoL 200 MG/20 ML VIAL As Ordered ONE (09:55)
[2020-01-05] MEDS ORDERED: ePHEDrine SULFATE 25 MG/5 ML(5MG/ML) SYRINGE As Ordered ONE (10:29)
[2020-01-05] MEDS ORDERED: PHENYLephrine HCL 500 MCG/5 ML (100MCG/ML) SYRINGE (J2370) As Ordered ONE (10:32)
--- NOTE | 2020-01-05 10:39 | ROOR ---
Patient Name: Freddie Beckford Procedure Date: 01/05/2020 10:19 AM Date of : 1970 Age: 49 Room: [facility] Gender: Male Note Status: Finalized Procedure: Total Colonoscopy to Cecum Indications: Screening for colorectal malignant neoplasm Providers: Juwan Rowland MD Referring MD: Quoc Guerra Md, [facility], Admin. Requesting Provider: Medicines: Monitored Anesthesia Care Complications: No immediate complications. Procedure: Pre-Anesthesia Assessment: - The heart rate, respiratory rate, oxygen saturations, blood pressure, adequacy of pulmonary ventilation, and response to care were monitored throughout the procedure. The Colonoscope was introduced through the anus and advanced to the cecum, identified by appendiceal orifice and ileocecal valve. The colonoscopy was performed without difficulty. The patient tolerated the procedure well. The quality of the bowel preparation was excellent. Findings: The perianal and digital rectal examinations were normal. No other significant abnormalities were identified in a careful examination of the remainder of the colon. The exam was otherwise without abnormality on direct and retroflexion views. Impression: - The examination was otherwise normal on direct and retroflexion views. - No specimens collected. - The exam was otherwise normal to the cecum. Recommendation: - Patient has a contact number available for emergencies. The signs and symptoms of potential delayed complications were discussed with the patient. Return to normal activities tomorrow. Written discharge instructions were provided to the patient. - High fiber diet. - Discharge patient to home. - Continue present medications. - Repeat colonoscopy in 10 years for screening purposes. - Return to referring physician. - The findings and recommendations were discussed with the patient. Juwan Rowland MD Juwan Rowland MD 01/05/2020 10:39:13 AM Electronically signed by Juwan Rowland MD Number of Addenda: 0 Note Initiated On: 01/05/2020 10:19 AM Estimated Blood Loss: Estimated blood loss: none.
[2020-01-05 11:00] VITALS: BP 113/80
== END 2020-01-05 11:10 | disposition home or self-care (01) ==
LOC: M OPP 09:26
PROVIDERS: ATTEND Internal Medicine Gastroenterology
DX: Z12.11 Encounter for screening for malignant neoplasm of colon (principal); I25.2 Old myocardial infarction; Z79.82 Long term (current) use of aspirin; Z79.899 Other long term (current) drug therapy; Z87.891 Personal history of nicotine dependence; Z87.442 Personal history of urinary calculi; Z95.5 Presence of coronary angioplasty implant and graft
CPT/HCPCS: G0121; J2370

== ENCOUNTER → 2020-01-20 | Outpatient (CLI) | payer OTHER ==
[~2020-01-20] MED LIST changes: -NS 1,000 ML IV ONE
== END ==
LOC: M PAIN 08:46
PROVIDERS: ATTEND Family Medicine
DX: M96.1 Postlaminectomy syndrome, not elsewhere classified (principal)

== ENCOUNTER → 2020-04-20 | Outpatient (CLI) | payer OTHER ==
--- NOTE | 2020-04-22 04:02 | ECWPNPC ---
PATIENT NAME: SAY RIOS : 1970 GENDER: MALE VISIT DATE: 04/20/2020 DISCHARGE DATE: 04/20/20 0939 VISIT LOCKED DATE TIME: PHYSICIAN: KRISHAN ROCHA RESOURCE: KRISHAN ROCHA REASON FOR APPOINTMENT 1. BACK PAIN HISTORY OF PRESENT ILLNESS DEPRESSION SCREENING: PHQ-2 (2015 EDITION) LITTLE INTEREST OR PLEASURE IN DOING THINGS?NOT AT ALL FEELING DOWN, DEPRESSED, OR HOPELESS?NOT AT ALL TOTAL SCORE0 49-YEAR-OLD MALE IN FOR WORKER'S COMP. CHRONIC PAIN FOLLOW-UP. HE FEELS MEDICATIONS ARE WORKING WELL AND DENIES MED SIDE EFFECTS AT THIS TIME. HE RATES HIS PAIN CURRENTLY AT A 6 OUT OF 10 AND DESCRIBES IT ACHING, BURNING, CONTINUOUS, SHARP, STABBING, THROBBING, AND SHOOTING. THE PATIENT WAS HURT IN A WORK RELATED INJURY ON 09/17/2009 WHILE WORKING FOR [employer]URNING [employer] WHEN HE WAS WEED WHACKING AND INJURED HIS BACK. THE PATIENT SAYS HE HAD BACK SURGERY IN 2010, BUT HIS PAIN PERSISTED. THE PATIENT HAS TRIED PHYSICAL THERAPY IN THE PAST, BUT SAYS IT DID NOT HELP. THE PATIENT HAS MAINLY BEEN USING MEDICATION MANAGEMENT TO CONTROL HIS PAIN. THE PATIENT IS CURRENTLY USING TRAMADOL AND SOMA TO AID IN PAIN RELIEF. HE STATES THESE MEDICATIONS AID IN HIS ABILITY FOR INCREASED FUNCITIONALITY AND DECREASED PAIN. FALL RISK SCREENING: SCREENING :NO FALLS REPORTED IN THE LAST YEAR PAIN SCREENING: PATIENT HAS A COMPLAINT OF ACUTE OR CHRONIC PAIN :YES LOCATION OF PAIN:LOW BACK INTENSITY OF PAIN (SCALE OF 1 TO 10):6 WHAT DOES YOUR PAIN FEEL LIKE:ACHING, BURNING, CONTINOUS, SHARP, STABBING, THROBBING, SHOOTING DURATION:CONTINOUS, CONSTANT, ALL DAY PAIN IS INCREASED BY:ACTIVITIES, PROLONGED STANDING, OTHERS SITTING PAIN IS DECREASED BY:USE OF PAIN MEDICATIONS NURSING NOTE: -. PAIN CENTER INTAKE QUESTIONS: DO YOU HAVE A HISTORY OF MRSA? :NO DO YOU TAKE A BLOOD THINNERS? :NO DO YOU HAVE ANY BLEEDING DISORDERS? :NO ANY NEW NUMBNESS OR WEAKNESS IN YOUR LEGS OR ARMS? :NO ANY PACEMAKER,DEFIBRILLATOR, OR DORSAL COLUMN STIMULATOR? :NO DO YOU HAVE ANY RASHES OR OPEN SORES? :NO ARE YOU ALLERGIC TO IV DYE? :NO ARE YOU DIABETIC? :NO ANY NEW PROBLEMS WITH YOUR MEDICATIONS? :NO HAVE YOU RECEIVED A VACCINE IN THE PAST 30 DAYS? :NO DO YOU PLAN TO RECEIVE A VACCINE IN THE NEXT 21 DAYS? :NO DO YOU NEED ANY PRESCRIPTION? :YES TRAMADOL, CARISOPRODOL DO YOU TAKE ANY IMMUNOSUPPRESSIVE MEDICATIONS? :NO IS THERE A CHANCE YOU COULD BE ? :NO ARE YOU BREAST FEEDING? :NO CURRENT MEDICATIONS TAKING VITAMIN D-3 5000 UNIT TABLET ORALLY BID TAKING LORATADINE 10 MG TABLET 1 TABLET ORALLY DIRECTED TAKING OMEPRAZOLE 20 MG CAPSULE DELAYED RELEASE 1 CAPSULES ORALLY ONCE A DAY NEEDED TAKING ATORVASTATIN CALCIUM 80 MG TABLET 1 TABLET ORALLY ONCE A DAY TAKING LISINOPRIL 5 MG TABLET 1 TABLET ORALLY ONCE A DAY TAKING COQ10 100 MG CAPSULE 1 CAPSULE WITH A MEAL ORALLY ONCE A DAY TAKING METOPROLOL TARTRATE 25 MG TABLET 1/2 TABLET WITH FOOD ORALLY TWICE A DAY TAKING MULTIVITAMIN - TABLET CHEWABLE ORALLY TAKING ASPIRIN 81 81 MG TABLET CHEWABLE 1 TABLET ORALLY ONCE A DAY TAKING CARISOPRODOL 350 MG TABLET 1 TABLET ORALLY DAILY NEEDED FOR SPASMS AND PAIN MDD1 TAKING TRAMADOL HCL 50 MG TABLET 1 TO 2 TABLETS ORALLY FOR PAIN EVERY 4 HOURS PRN PAIN MDD=6 WORKERS COMP NOT-TAKING FLOMAX 0.4 MG CAPSULE 1 CAPSULE ORALLY ONCE A DAY NOT-TAKING CLOPIDOGREL BISULFATE 75 MG TABLET 1 TABLET ORALLY ONCE A DAY NOT-TAKING ATORVASTATIN CALCIUM 20 MG TABLET 1 TABLET ORALLY ONCE A DAY NOT-TAKING PRILOSEC 20 MG CAPSULE DELAYED RELEASE 1 CAPSULE ORALLY ONCE A DAY MEDICATION LIST REVIEWED AND RECONCILED WITH THE PATIENT PAST MEDICAL HISTORY 10/08/16 [place] CHRONIC BACK PAIN HYPERCHOLESTEROLEMIA KIDNEY STONE ALLERGIES N.K.D.A. SURGICAL HISTORY SINUS,BACK,RIGHT SHOULDER,TONSILLECTOMY CARDIAC STENT 10/08/16 LEFT KIDNEY STENT 08/2018 RIGHT SHOULDER REBUILT" 1999 FAMILY HISTORY FATHER: ALIVE, DIAGNOSED WITH OTHER MALIGNANT NEOPLASM OF UNSPECIFIED SITE MOTHER: ALIVE, UNSPECIFIED HEART DISEASE 1 SISTER(S) - HEALTHY. SOCIAL HISTORY GENERAL: TOBACCO USE ARE YOU A:FORMER SMOKER HOW LONG HAS IT BEEN SINCE YOU LAST SMOKED?5-10 YEARS LATEX QUESTIONNAIRE LATEX ALLERGY : HAVE YOU EVER DEVELOPED ANY TYPE OF REACTION AFTER HANDLING LATEX PRODUCTS SUCH RUBBER GLOVES, CONDOMS, DIAPHRAGMS, BALLOONS, SOCKS, OR UNDERWEAR?NO LATEX ALLERGY : HAVE YOU EVER DEVELOPED ANY TYPE OF REACTION DURING OR AFTER DENTAL APPOINTMENT, VAGINAL/RECTAL EXAMINATION, SURGICAL PROCEDURE, OR ANY OTHER EXPOSURE?NO LATEX RISK : HAVE YOU EVER HAD ANY DIFFICULTY BREATHING OR HIVES AFTER EATING OR HANDLING ANY FRUITS, OR VEGETABLES; SUCH KIWI, BANANAS, STONE FRUITS, OR CHESTNUTSNO LATEX RISK : DO YOU HAVE A PREVIOUS PERSONAL HISTORY OF MORE THAN NINE SURGERIES, SPINA BIFIDA, OR REPEATED CATHERIZATIONS? 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 MARITAL STATUS: . OTHERS AT HOME: SPOUSE. PAIN CLINIC PFS, CLERGY, PUBLIC HEALTH REFERRALS PFS REFERRAL NEEDED?NO CLERGY REFERRAL NEEDED?NO PUBLIC HEALTH REFERRAL NEEDED?NO WAS THE PROVIDER NOTIFIED OF ANY PERTINENT INFO?YES HAS THE PATIENT BEEN EDUCATED REGARDING HIS/HER PLAN OF CARE?YES HAS THE PATIENT BEEN EDUCATED REGARDING PAIN, THE RISK FOR PAIN, THE IMPORTANCE OF EFFECTIVE PAIN MANAGEMENT, AND THE PAIN ASSESSMENT PROCESS?YES ADVANCE DIRECTIVE ADVANCE DIRECTIVE DISCUSSED WITH PATIENT:YES DECLINED HCP INFORMATION, DECLINED ASSISTANCE WITH PAPERWORK. DS HOSPITALIZATION/MAJOR DIAGNOSTIC PROCEDURE [place] KIDNEY STONE 08/2018 REVIEW OF SYSTEMS CONSTITUTIONAL: ANY RECENT FEVER NO . CHILLS NO . WEIGHT CHANGE OF UNKNOWN REASONS NO . GASTROENTEROLOGY: NEW UNEXPLAINABLE CHANGES IN BOWEL CONTROL NO . CONSTIPATION NO . GENITOURINARY: ANY NEW CHANGE IN BLADDER CONTROL? NO . NEUROLOGY: NEW ONSET DIZZINESS OR NEUROLOGICAL CHANGES NOT MENTIONED NO . NEW NUMBNESS OR PAIN PATTERNS NOT MENTIONED AND PERTINENT TO TODAY'S VISIT NO . CARDIOLOGY: NEW CHEST PRESSURE NO . NEW CHEST PAIN NO . RESPIRATORY: UNEXPLAINABLE COUGH NO . NEW SHORTNESS OF BREATH NO . VITAL SIGNS WT 234.6 LBS, HT 6'1", BMI 30.95 INDEX, BP 135/86 MM HG, HR 62 /MIN, RR 18 /MIN, TEMP 97.6 F, OXYGEN SAT % 97%, SAFE IN ENV? (Y/N) YES, NA INITIALS SC 08:55, REVIEWED BY: EVI DOMINGUEZ. EXAMINATION GENERAL EXAMINATION: GENERALNO ACUTE DISTRESS, WELL NOURISHED AND HYDRATED. PSYCHAPPROPRIATE MOOD AND AFFECT . LUNGS:CLEAR TO AUSCULTATION BILATERALLY, NO WHEEZES, RHONCHI, RALES. HEART:NO MURMURS, REGULAR RATE AND RHYTHM. ASSESSMENTS LUMBAR POST-LAMINECTOMY SYNDROME - M96.1 (PRIMARY) TREATMENT LUMBAR POST-LAMINECTOMY SYNDROME LAB: PAIN CENTER URINE TOX (SEND OUT) APURVA CLARKE 04/20/2020 10:31:47 AM > UTOX SENT 04-20-20 NOTES: 49-YEAR-OLD MALE IN FOR WORKER'S COMP. CHRONIC PAIN FOLLOW-UP. GIVEN PRESENTING SYMPTOMS RECOMMENDED CONTINUATION OF CURRENT MEDICATION REGIMEN WITH FOLLOW-UP IN 3 MONTHS. PATIENT HAS EXPRESSED UNDERSTANDING OF AND WAS IN AGREEMENT WITH TREATMENT PLAN. GIVEN TIME TO ASK QUESTIONS AND EXPRESS CONCERNS. , ISTOP REGISTRY REVIEWED AND DEMONSTRATES COMPLLIANCE. (REF # [id number] ) BRINGS IN MEDICATIONS WHICH IS APPROPRIATE FOR WHAT WAS DISPENSED. RECENT URINE TOXICOLOGY REVIEWED. NO UNAUTHORIZED MEDICATIONS. NO ILLICIT SUBSTANCES AND PRESCRIBED MEDICATIONS WERE PRESENT. PROCEDURES PN WORKMANS' COMP OPINION IN YOUR OPINION, WAS THE INCIDENT THAT THE PATIENT DESCRIBED THE COMPETENT MEDICAL CAUSE OF THIS INJURY/ILLNESS? YES ARE THE PATIENT'S COMPLAINTS CONSISTENT WITH HIS/HER HISTORY OF THE INJURY/ILLNESS? YES IS THE PATIENT'S HISTORY OF THE INJURY/ILLNESS CONSISTENT WITH YOUR OBJECTIVE FINDING? YES WHAT IS THE PERCENTAGE OF TEMPORARY IMPAIRMENT? MODERATE TO MARKED = 66.7% IS THE PATIENT WORKING? YES DOCTOR ON SITE: PRO BELL MD PROCEDURE CODES FA211 ESTABILISHED PATIENT [facility] FACILITY CHARGE DISPOSITION & COMMUNICATION FOLLOW UP 3 MONTHS (REASON: WORKER'S COMP. BACK PAIN) ELECTRONICALLY SIGNED BY JIMI LOJA ON 04/21/2020 AT 09:08 AM EST DISCLAIMER : THIS IS A VISIT SUMMARY EXTRACTED FROM THE [employer] CHART. IT IS NOT A COPY OF THE [employer] PROGRESS NOTE. MACIEJ
== END ==
LOC: M PAIN 09:00
PROVIDERS: ATTEND Family Medicine
DX: M96.1 Postlaminectomy syndrome, not elsewhere classified (principal); I25.2 Old myocardial infarction; Z95.5 Presence of coronary angioplasty implant and graft; Z87.891 Personal history of nicotine dependence; Z79.82 Long term (current) use of aspirin; Z79.891 Long term (current) use of opiate analgesic; Z79.899 Other long term (current) drug therapy

== ENCOUNTER → 2020-07-19 | Outpatient (CLI) | payer OTHER ==
[~2020-07-19] MED LIST changes: -LISI-538 PO; -LISI-542 PO; +LISI-898 PO; +LISI20TA33 PO
--- NOTE | 2020-07-21 06:12 | ECWPNPC ---
PATIENT NAME: SAY RIOS : 1970 GENDER: MALE VISIT DATE: 07/19/2020 DISCHARGE DATE: 07/19/20 0954 VISIT LOCKED DATE TIME: PHYSICIAN: KRISHAN ROCHA RESOURCE: KRISHAN ROCHA REASON FOR APPOINTMENT 1. WORKER'S COMP. BACK PAIN HISTORY OF PRESENT ILLNESS GENERAL: - 49-YEAR-OLD MALE IN FOR WORKER'S COMP. CHRONIC PAIN FOLLOW-UP. HE RATES HIS PAIN CURRENTLY AT A 6 OUT OF 10 AND DESCRIBES IT CONTINUOUS, SHARP, AND NUMB. HE FEELS MEDICATIONS ARE HELPFUL AND DENIES MED SIDE EFFECTS AT THIS TIME. 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 THE PATIENT SAYS HE HAD BACK SURGERY IN 2010, BUT HIS PAIN PERSISTED. THE PATIENT HAS TRIED PHYSICAL THERAPY IN THE PAST, BUT SAYS IT DID NOT HELP. THE PATIENT HAS MAINLY BEEN USING MEDICATION MANAGEMENT TO CONTROL HIS PAIN. THE PATIENT IS CURRENTLY USING TRAMADOL AND SOMA TO AID IN PAIN RELIEF. HE STATES THESE MEDICATIONS AID IN HIS ABILITY FOR INCREASED FUNCITIONALITY AND DECREASED PAIN. FALL RISK SCREENING: SCREENING : NO FALLS REPORTED IN THE LAST YEAR. PAIN SCREENING: PATIENT HAS A COMPLAINT OF ACUTE OR CHRONIC PAIN :YES LOCATION OF PAIN:LOW BACK INTENSITY OF PAIN (SCALE OF 1 TO 10):6 WHAT DOES YOUR PAIN FEEL LIKE:CONTINOUS, SHARP, OTHER NUMB DURATION:CONTINOUS, AWAKENS FROM SLEEP PAIN IS INCREASED BY:ACTIVITIES, PROLONGED STANDING PAIN IS DECREASED BY:USE OF PAIN MEDICATIONS, SITTING NURSING NOTE: -. PAIN CENTER INTAKE QUESTIONS: DO YOU HAVE A HISTORY OF MRSA? :NO DO YOU TAKE A BLOOD THINNERS? :NO DO YOU HAVE ANY BLEEDING DISORDERS? :NO ANY NEW NUMBNESS OR WEAKNESS IN YOUR LEGS OR ARMS? :NO ANY PACEMAKER,DEFIBRILLATOR, OR DORSAL COLUMN STIMULATOR? :NO DO YOU HAVE ANY RASHES OR OPEN SORES? :NO ARE YOU ALLERGIC TO IV DYE? :NO ARE YOU DIABETIC? :NO ANY NEW PROBLEMS WITH YOUR MEDICATIONS? :NO HAVE YOU RECEIVED A VACCINE IN THE PAST 30 DAYS? :NO DO YOU PLAN TO RECEIVE A VACCINE IN THE NEXT 21 DAYS? :YES IF SO WHAT VACCINE AND WHEN? FIRST COVID VACCINATION 08/07/2020 DO YOU TAKE ANY IMMUNOSUPPRESSIVE MEDICATIONS? :NO ANY HISTORY OF SEIZURES? :NO ANY HISTORY OF CARDIAC ISSUES OR EVENTS? :NO DO YOU HAVE ANY KIDNEY OR LIVER DISEASE? :NO DO YOU HAVE SLEEP APNEA? :NO ANY RECENT HEAD INJURY? :NO DO YOU HAVE ANY NEW INFECTIONS? :NO IS THERE A CHANCE YOU COULD BE ? :NO ARE YOU BREAST FEEDING? :NO WHEN DID YOU LAST EAT? : - WHEN DID YOU LAST DRINK? : - WHAT DID YOU LAST DRINK? : - NAME OF PERSON DRIVING YOU HOME? : - DO YOU HAVE ANY OTHER QUESTIONS OR CONCERNS? : - CURRENT MEDICATIONS TAKING VITAMIN D-3 5000 UNIT TABLET ORALLY BID TAKING LORATADINE 10 MG TABLET 1 TABLET ORALLY DIRECTED TAKING OMEPRAZOLE 20 MG CAPSULE DELAYED RELEASE 1 CAPSULES ORALLY ONCE A DAY NEEDED TAKING ATORVASTATIN CALCIUM 80 MG TABLET 1 TABLET ORALLY ONCE A DAY TAKING LISINOPRIL 5 MG TABLET 1 TABLET ORALLY ONCE A DAY TAKING COQ10 100 MG CAPSULE 1 CAPSULE WITH A MEAL ORALLY ONCE A DAY TAKING METOPROLOL TARTRATE 25 MG TABLET 1/2 TABLET WITH FOOD ORALLY TWICE A DAY TAKING MULTIVITAMIN - TABLET CHEWABLE ORALLY TAKING ASPIRIN 81 81 MG TABLET CHEWABLE 1 TABLET ORALLY ONCE A DAY TAKING CARISOPRODOL 350 MG TABLET 1 TABLET ORALLY DAILY NEEDED FOR SPASMS AND PAIN MDD1 TAKING TRAMADOL HCL 50 MG TABLET 1 TABLET NEEDED ORALLY FOR PAIN EVERY 4 HOURS PRN PAIN MDD=6 WORKERS COMP TAKING TRAZODONE HCL 50 MG TABLET 1 TABLET AT BEDTIME NEEDED ORALLY ONCE A DAY UNKNOWN FLOMAX 0.4 MG CAPSULE 1 CAPSULE ORALLY ONCE A DAY UNKNOWN CLOPIDOGREL BISULFATE 75 MG TABLET 1 TABLET ORALLY ONCE A DAY UNKNOWN ATORVASTATIN CALCIUM 20 MG TABLET 1 TABLET ORALLY ONCE A DAY UNKNOWN PRILOSEC 20 MG CAPSULE DELAYED RELEASE 1 CAPSULE ORALLY ONCE A DAY MEDICATION LIST REVIEWED AND RECONCILED WITH THE PATIENT ALLERGIES NO[ALLERGIES VERIFIED] SOCIAL HISTORY GENERAL: TOBACCO USE ARE YOU A:FORMER SMOKER HOW LONG HAS IT BEEN SINCE YOU LAST SMOKED?5-10 YEARS LATEX QUESTIONNAIRE LATEX ALLERGY : HAVE YOU EVER DEVELOPED ANY TYPE OF REACTION AFTER HANDLING LATEX PRODUCTS SUCH RUBBER GLOVES, CONDOMS, DIAPHRAGMS, BALLOONS, SOCKS, OR UNDERWEAR?NO LATEX ALLERGY : HAVE YOU EVER DEVELOPED ANY TYPE OF REACTION DURING OR AFTER DENTAL APPOINTMENT, VAGINAL/RECTAL EXAMINATION, SURGICAL PROCEDURE, OR ANY OTHER EXPOSURE?NO LATEX RISK : HAVE YOU EVER HAD ANY DIFFICULTY BREATHING OR HIVES AFTER EATING OR HANDLING ANY FRUITS, OR VEGETABLES; SUCH KIWI, BANANAS, STONE FRUITS, OR CHESTNUTSNO LATEX RISK : DO YOU HAVE A PREVIOUS PERSONAL HISTORY OF MORE THAN NINE SURGERIES, SPINA BIFIDA, OR REPEATED CATHERIZATIONS? NO LATEX RISK : ARE YOU FREQUENTLY EXPOSED TO LATEX PRODUCTS IN YOUR OCCUPATION?NO DATE ASKED : 07/19/2020 ALCOHOL USE: NO. 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 MARITAL STATUS: . OTHERS AT HOME: SPOUSE. - PFS REFERRAL NEEDED?NO CLERGY REFERRAL NEEDED?NO PUBLIC HEALTH REFERRAL NEEDED?NO WAS THE PROVIDER NOTIFIED OF ANY PERTINENT INFO?YES HAS THE PATIENT BEEN EDUCATED REGARDING HIS/HER PLAN OF CARE?YES HAS THE PATIENT BEEN EDUCATED REGARDING PAIN, THE RISK FOR PAIN, THE IMPORTANCE OF EFFECTIVE PAIN MANAGEMENT, AND THE PAIN ASSESSMENT PROCESS?YES ADVANCE DIRECTIVE ADVANCE DIRECTIVE DISCUSSED WITH PATIENT:YES DECLINED HCP INFORMATION, DECLINED ASSISTANCE WITH PAPERWORK. DS REVIEW OF SYSTEMS CONSTITUTIONAL: ANY RECENT FEVER NO . CHILLS NO . WEIGHT CHANGE OF UNKNOWN REASONS NO . GASTROENTEROLOGY: NEW UNEXPLAINABLE CHANGES IN BOWEL CONTROL NO . CONSTIPATION NO . GENITOURINARY: ANY NEW CHANGE IN BLADDER CONTROL? NO . NEUROLOGY: NEW ONSET DIZZINESS OR NEUROLOGICAL CHANGES NOT MENTIONED NO . NEW NUMBNESS OR PAIN PATTERNS NOT MENTIONED AND PERTINENT TO TODAY'S VISIT NO . CARDIOLOGY: NEW CHEST PRESSURE NO . PATIENT DENIES NO . RESPIRATORY: UNEXPLAINABLE COUGH NO . NEW SHORTNESS OF BREATH NO . VITAL SIGNS WT 236 LBS, HT 6'1", BMI 31.13 INDEX, BP 132/79 MM HG, HR 63 /MIN, RR 18 /MIN, TEMP 98.4 F, OXYGEN SAT % 97%, SAFE IN ENV? (Y/N) YES, REVIEWED BY: GIANNA CARDENAS MA. EXAMINATION GENERAL EXAMINATION: GENERALNO ACUTE DISTRESS, WELL NOURISHED AND HYDRATED. PSYCHAPPROPRIATE MOOD AND AFFECT . LUNGS:CLEAR TO AUSCULTATION BILATERALLY, NO WHEEZES, RHONCHI, RALES. HEART:NO MURMURS, REGULAR RATE AND RHYTHM. ASSESSMENTS LUMBAR POST-LAMINECTOMY SYNDROME - M96.1 (PRIMARY), RISK: (NULL) TREATMENT LUMBAR POST-LAMINECTOMY SYNDROME CONTINUE CARISOPRODOL TABLET, 350 MG, 1 TABLET, ORALLY, DAILY NEEDED FOR SPASMS AND PAIN MDD1, 30 DAYS, 30, REFILLS 0 CONTINUE TRAMADOL HCL TABLET, 50 MG, 1 TABLET NEEDED, ORALLY FOR PAIN, EVERY 4 HOURS PRN PAIN MDD=6 WORKERS COMP, 30 DAY(S), 175 NOTES: 49-YEAR-OLD MALE IN FOR CHRONIC PAIN FOLLOW-UP. GIVEN PRESENTING SYMPTOMS RECOMMENDED CONTINUATION OF CURRENT MEDICATION REGIMEN WITH FOLLOW-UP IN 3 MONTHS. PATIENT HAS EXPRESSED UNDERSTANDING OF AND WAS IN AGREEMENT WITH TREATMENT PLAN. GIVEN TIME TO ASK QUESTIONS AND EXPRESS CONCERNS. , ISTOP REGISTRY REVIEWED AND DEMONSTRATES COMPLLIANCE. (REF # [id number] ) BRINGS IN MEDICATIONS WHICH IS APPROPRIATE FOR WHAT WAS DISPENSED. RECENT URINE TOXICOLOGY REVIEWED. NO UNAUTHORIZED MEDICATIONS. NO ILLICIT SUBSTANCES AND PRESCRIBED MEDICATIONS WERE PRESENT. PROCEDURES PN WORKMANS' COMP OPINION IN YOUR OPINION, WAS THE INCIDENT THAT THE PATIENT DESCRIBED THE COMPETENT MEDICAL CAUSE OF THIS INJURY/ILLNESS? YES ARE THE PATIENT'S COMPLAINTS CONSISTENT WITH HIS/HER HISTORY OF THE INJURY/ILLNESS? YES IS THE PATIENT'S HISTORY OF THE INJURY/ILLNESS CONSISTENT WITH YOUR OBJECTIVE FINDING? YES WHAT IS THE PERCENTAGE OF TEMPORARY IMPAIRMENT? MODERATE TO MARKED = 66.7% IS THE PATIENT WORKING? YES DOCTOR ON SITE: PRO BELL MD PROCEDURE CODES FA211 ESTABILISHED PATIENT [facility] FACILITY CHARGE DISPOSITION & COMMUNICATION FOLLOW UP 3 MONTHS (REASON: W/C LOW BACK PAIN ) ELECTRONICALLY SIGNED BY JIMI LOJA ON 07/20/2020 AT 08:29 AM EDT DISCLAIMER : THIS IS A VISIT SUMMARY EXTRACTED FROM THE [employer] CHART. IT IS NOT A COPY OF THE [employer] PROGRESS NOTE. MACIEJ
== END ==
LOC: M PAIN 09:30
PROVIDERS: ATTEND Family Medicine
DX: M96.1 Postlaminectomy syndrome, not elsewhere classified (principal); Z87.891 Personal history of nicotine dependence; Z79.82 Long term (current) use of aspirin; Z79.891 Long term (current) use of opiate analgesic; Z79.899 Other long term (current) drug therapy

== ENCOUNTER → 2020-10-27 | Outpatient (CLI) | payer OTHER ==
--- NOTE | 2020-10-29 04:55 | ECWPNPC ---
PATIENT NAME: SAY RIOS : 1970 GENDER: MALE VISIT DATE: 10/27/2020 DISCHARGE DATE: 10/27/20923 VISIT LOCKED DATE TIME: PHYSICIAN: KRISHAN ROCHA RESOURCE: KRISHAN ROCHA REASON FOR APPOINTMENT 1. W/C LOW BACK PAIN HISTORY OF PRESENT ILLNESS DEPRESSION SCREENING: PHQ-2 (2015 EDITION) LITTLE INTEREST OR PLEASURE IN DOING THINGS?NOT AT ALL FEELING DOWN, DEPRESSED, OR HOPELESS?NOT AT ALL TOTAL SCORE0 GENERAL: HPI 49-YEAR-OLD MALE IN FOR CHRONIC PAIN FOLLOW-UP. HE RATES HIS PAIN CURRENTLY AT A 6 OUT OF 10 AND DESCRIBES IT ACHING, BURNING, CONTINUOUS, SHARP, STABBING, TENDER, THROBBING, SORE, AND SHOOTING. HE FEELS HIS MEDICATIONS ARE HELPFUL AND DENIES MED SIDE EFFECTS AT THIS TIME. DOI: 09/17/2009. -. FALL RISK SCREENING: SCREENING : NO FALLS REPORTED IN THE LAST YEAR. PAIN SCREENING: PATIENT HAS A COMPLAINT OF ACUTE OR CHRONIC PAIN :YES LOCATION OF PAIN:LOW BACK, LEG(S), KNEES INTENSITY OF PAIN (SCALE OF 1 TO 10):6 WHAT DOES YOUR PAIN FEEL LIKE:ACHING, BURNING, CONTINOUS, SHARP, STABBING, TENDER, THROBBING, SORE, SHOOTING DURATION:CONTINOUS PAIN IS INCREASED BY:OTHERS PROLONGED PAIN PAIN IS DECREASED BY:USE OF PAIN MEDICATIONS NURSING NOTE: -. PAIN CENTER INTAKE QUESTIONS: DO YOU HAVE A HISTORY OF MRSA? :NO DO YOU TAKE A BLOOD THINNERS? :NO DO YOU HAVE ANY BLEEDING DISORDERS? :NO ANY NEW NUMBNESS OR WEAKNESS IN YOUR LEGS OR ARMS? :YES LATERAL KNESS FEEL WEAKER ANY PACEMAKER,DEFIBRILLATOR, OR DORSAL COLUMN STIMULATOR? :NO DO YOU HAVE ANY RASHES OR OPEN SORES? :NO ARE YOU ALLERGIC TO IV DYE? :NO ARE YOU DIABETIC? :NO ANY NEW PROBLEMS WITH YOUR MEDICATIONS? :NO HAVE YOU RECEIVED A VACCINE IN THE PAST 30 DAYS? :NO DO YOU PLAN TO RECEIVE A VACCINE IN THE NEXT 21 DAYS? :NO DO YOU NEED ANY PRESCRIPTION? :YES TRAMADOL AND SOMA DO YOU TAKE ANY IMMUNOSUPPRESSIVE MEDICATIONS? :NO DO YOU HAVE ANY KIDNEY OR LIVER DISEASE? :NO IS THERE A CHANCE YOU COULD BE ? :NO ARE YOU BREAST FEEDING? :NO CURRENT MEDICATIONS TAKING VITAMIN D-3 5000 UNIT TABLET ORALLY BID TAKING LORATADINE 10 MG TABLET 1 TABLET ORALLY DIRECTED TAKING OMEPRAZOLE 20 MG CAPSULE DELAYED RELEASE 1 CAPSULES ORALLY ONCE A DAY NEEDED TAKING ATORVASTATIN CALCIUM 80 MG TABLET 1 TABLET ORALLY ONCE A DAY TAKING LISINOPRIL 5 MG TABLET 1 TABLET ORALLY ONCE A DAY TAKING COQ10 100 MG CAPSULE 1 CAPSULE WITH A MEAL ORALLY ONCE A DAY TAKING METOPROLOL TARTRATE 25 MG TABLET 1/2 TABLET WITH FOOD ORALLY TWICE A DAY TAKING MULTIVITAMIN - TABLET CHEWABLE ORALLY TAKING ASPIRIN 81 81 MG TABLET CHEWABLE 1 TABLET ORALLY ONCE A DAY TAKING TRAZODONE HCL 50 MG TABLET 1 TABLET AT BEDTIME NEEDED ORALLY ONCE A DAY TAKING CARISOPRODOL 350 MG TABLET 1 TABLET ORALLY DAILY NEEDED FOR SPASMS AND PAIN MDD1 TAKING TRAMADOL HCL 50 MG TABLET 1 TABLET NEEDED ORALLY FOR PAIN EVERY 4 HOURS PRN PAIN MDD=6 WORKERS COMP NOT-TAKING FLOMAX 0.4 MG CAPSULE 1 CAPSULE ORALLY ONCE A DAY NOT-TAKING CLOPIDOGREL BISULFATE 75 MG TABLET 1 TABLET ORALLY ONCE A DAY NOT-TAKING ATORVASTATIN CALCIUM 20 MG TABLET 1 TABLET ORALLY ONCE A DAY NOT-TAKING PRILOSEC 20 MG CAPSULE DELAYED RELEASE 1 CAPSULE ORALLY ONCE A DAY MEDICATION LIST REVIEWED AND RECONCILED WITH THE PATIENT PAST MEDICAL HISTORY 10/08/16 TX CHRONIC BACK PAIN HYPERCHOLESTEROLEMIA KIDNEY STONE ALLERGIES N.K.D.A. SOCIAL HISTORY GENERAL: TOBACCO USE ARE YOU A:FORMER SMOKER HOW LONG HAS IT BEEN SINCE YOU LAST SMOKED?5-10 YEARS LATEX QUESTIONNAIRE LATEX ALLERGY : HAVE YOU EVER DEVELOPED ANY TYPE OF REACTION AFTER HANDLING LATEX PRODUCTS SUCH RUBBER GLOVES, CONDOMS, DIAPHRAGMS, BALLOONS, SOCKS, OR UNDERWEAR?NO LATEX ALLERGY : HAVE YOU EVER DEVELOPED ANY TYPE OF REACTION DURING OR AFTER DENTAL APPOINTMENT, VAGINAL/RECTAL EXAMINATION, SURGICAL PROCEDURE, OR ANY OTHER EXPOSURE?NO LATEX RISK : HAVE YOU EVER HAD ANY DIFFICULTY BREATHING OR HIVES AFTER EATING OR HANDLING ANY FRUITS, OR VEGETABLES; SUCH KIWI, BANANAS, STONE FRUITS, OR CHESTNUTSNO LATEX RISK : DO YOU HAVE A PREVIOUS PERSONAL HISTORY OF MORE THAN NINE SURGERIES, SPINA BIFIDA, OR REPEATED CATHERIZATIONS? NO LATEX RISK : ARE YOU FREQUENTLY EXPOSED TO LATEX PRODUCTS IN YOUR OCCUPATION?NO DATE ASKED : 10/27/2020 ALCOHOL USE: NO. ALCOHOL SCREENING DID YOU HAVE A DRINK CONTAINING ALCOHOL IN THE PAST YEAR?NO POINTS0 INTERPRETATIONNEGATIVE RECREATIONAL DRUG USE DRUG USE?NO ANGLICAN [id number] JEW LANGUAGE LANGUAGES SPOKEN:COSTA RICAN LEARNING BARRIERS / SPECIAL NEEDS CHANGE FROM LAST VISIT?NO BARRIERS TO LEARNING?NO HEARING IMPAIRED?NO VISION IMPAIRED?NO COGNITIVELY IMPAIRED?NO READINESS TO LEARN?YES LEARNING PREFERENCES?NO LEARNING CAPABILITIES PRESENT?YES EMOTIONAL BARRIERS?NO SPECIAL DEVICES?NO MANAGER WOUND CARE NEEDED?NO DOMESTIC VIOLENCE DO YOU FEEL SAFE IN YOUR ENVIRONMENT?YES OCCUPATION: DISABILITY. MARITAL STATUS: . OTHERS AT HOME: SPOUSE. - PFS REFERRAL NEEDED?NO CLERGY REFERRAL NEEDED?NO PUBLIC HEALTH REFERRAL NEEDED?NO WAS THE PROVIDER NOTIFIED OF ANY PERTINENT INFO?YES HAS THE PATIENT BEEN EDUCATED REGARDING HIS/HER PLAN OF CARE?YES HAS THE PATIENT BEEN EDUCATED REGARDING PAIN, THE RISK FOR PAIN, THE IMPORTANCE OF EFFECTIVE PAIN MANAGEMENT, AND THE PAIN ASSESSMENT PROCESS?YES ADVANCE DIRECTIVE ADVANCE DIRECTIVE DISCUSSED WITH PATIENT:YES DECLINED HCP INFORMATION, DECLINED ASSISTANCE WITH PAPERWORK. DS REVIEW OF SYSTEMS CONSTITUTIONAL: ANY RECENT FEVER NO . CHILLS NO . WEIGHT CHANGE OF UNKNOWN REASONS NO . GASTROENTEROLOGY: NEW UNEXPLAINABLE CHANGES IN BOWEL CONTROL NO . CONSTIPATION NO . GENITOURINARY: ANY NEW CHANGE IN BLADDER CONTROL? NO . NEUROLOGY: NEW ONSET DIZZINESS OR NEUROLOGICAL CHANGES NOT MENTIONED NO . NEW NUMBNESS OR PAIN PATTERNS NOT MENTIONED AND PERTINENT TO TODAY'S VISIT NO . CARDIOLOGY: NEW CHEST PRESSURE NO . PATIENT DENIES NO . RESPIRATORY: UNEXPLAINABLE COUGH NO . NEW SHORTNESS OF BREATH NO . VITAL SIGNS WT 230.6 LBS, HT 6'1", BMI 30.42 INDEX, BP 141/80 MM HG, HR 56 /MIN, RR 18 /MIN, TEMP 98.1 F, OXYGEN SAT % 98%, SAFE IN ENV? (Y/N) YES, NA INITIALS AW 0905, REVIEWED BY: Kash CONTRERAS. EXAMINATION GENERAL EXAMINATION: GENERALNO ACUTE DISTRESS, WELL NOURISHED AND HYDRATED. PSYCHAPPROPRIATE MOOD AND AFFECT . LUNGS:CLEAR TO AUSCULTATION BILATERALLY, NO WHEEZES, RHONCHI, RALES. HEART:NO MURMURS, REGULAR RATE AND RHYTHM. ASSESSMENTS POSTLAMINECTOMY SYNDROME, NOT ELSEWHERE CLASSIFIED - M96.1 (PRIMARY), RISK: (NULL) LUMBAR POST-LAMINECTOMY SYNDROME - M96.1, RISK: (NULL) TREATMENT POSTLAMINECTOMY SYNDROME, NOT ELSEWHERE CLASSIFIED NOTES: 49-YEAR-OLD MALE IN FOR CHRONIC PAIN FOLLOW-UP. GIVEN PRESENTING SYMPTOMS RECOMMEND CONTINUATION OF CURRENT MEDICATION REGIMEN WITH FOLLOW-UP IN 3 MONTHS. PATIENT HAS EXPRESSED UNDERSTANDING OF AND WAS IN AGREEMENT WITH TREATMENT PLAN. GIVEN TIME TO ASK QUESTIONS AND EXPRESS CONCERNS. [employer] REGISTRY REVIEWED AND DEMONSTRATES COMPLLIANCE. (REF #[id number] ) BRINGS IN MEDICATIONS WHICH IS APPROPRIATE FOR WHAT WAS DISPENSED. RECENT URINE TOXICOLOGY REVIEWED. NO UNAUTHORIZED MEDICATIONS. NO ILLICIT SUBSTANCES AND PRESCRIBED MEDICATIONS WERE PRESENT. LUMBAR POST-LAMINECTOMY SYNDROME REFILL TRAMADOL HCL TABLET, 50 MG, 1 TABLET NEEDED, ORALLY FOR PAIN, EVERY 4 HOURS PRN PAIN MDD=6 WORKERS COMP, 30 DAY(S), 175 REFILL CARISOPRODOL TABLET, 350 MG, 1 TABLET, ORALLY, DAILY NEEDED FOR SPASMS AND PAIN MDD1, 30 DAYS, 30, REFILLS 0 PROCEDURES PN WORKMANS' COMP OPINION IN YOUR OPINION, WAS THE INCIDENT THAT THE PATIENT DESCRIBED THE COMPETENT MEDICAL CAUSE OF THIS INJURY/ILLNESS? YES ARE THE PATIENT'S COMPLAINTS CONSISTENT WITH HIS/HER HISTORY OF THE INJURY/ILLNESS? YES IS THE PATIENT'S HISTORY OF THE INJURY/ILLNESS CONSISTENT WITH YOUR OBJECTIVE FINDING? YES WHAT IS THE PERCENTAGE OF TEMPORARY IMPAIRMENT? MODERATE TO MARKED = 66.7% IS THE PATIENT WORKING? YES DOCTOR ON SITE: [facility] MD PROCEDURE CODES FA211 ESTABILISHED PATIENT [facility] FACILITY CHARGE DISPOSITION & COMMUNICATION FOLLOW UP 3 MONTHS (REASON: BACK PAIN ) ELECTRONICALLY SIGNED BY JIMI LOJA ON 10/28/2020 AT 08:34 AM EDT DISCLAIMER : THIS IS A VISIT SUMMARY EXTRACTED FROM THE [employer] CHART. IT IS NOT A COPY OF THE [employer] PROGRESS NOTE. MACIEJ
== END ==
LOC: M PAIN 09:00
PROVIDERS: ATTEND Family Medicine
DX: M96.1 Postlaminectomy syndrome, not elsewhere classified (principal); E78.00 Pure hypercholesterolemia, unspecified; Z87.891 Personal history of nicotine dependence; Z79.82 Long term (current) use of aspirin; Z79.891 Long term (current) use of opiate analgesic; Z79.899 Other long term (current) drug therapy

== ENCOUNTER 2021-07-05 08:08 | Emergency (ER) | payer OTHER ==
[~2021-07-05] VITALS: Ht 182.9 cm; Wt 104.5 kg
[~2021-07-05 08:08] MED LIST changes: -LISI-898 PO; +LISI5TAB11 PO
[2021-07-05] MEDS ORDERED: OXYMETAZOLINE 0.05% NASAL SPRAY (AFRIN) STA (09:29)
[2021-07-05 10:26] LABS: BASO # 0.1 10^3/uL (0.0-0.2); BASO % 0.9 % (0.0-1.0); EOS # 0.3 10^3/uL (0.0-0.5); EOS % 4.1 % (0.0-3.0); HEMATOCRIT 44.7 % (42.0-52.0); HEMOGLOBIN 15.3 g/dl (13.5-17.5); LYMPH # 2.4 10^3/uL (1.5-5.0); LYMPH % 30.1 % (24.0-44.0); MEAN CORPUSCULAR HEMOGLOBIN 30.1 pg (27.0-33.0); MEAN CORPUSCULAR HGB CONC 34.2 g/dl (32.0-36.5); MONO # 0.7 10^3/uL (0.0-0.8); MONO % 8.4 % (2.0-8.0); NEUTROPHILS # 4.5 10^3/uL (1.5-8.5); PLATELET COUNT, AUTOMATED 271 10^3/uL (150-450); RED BLOOD COUNT 5.08 10^6/uL (4.30-6.10)
[2021-07-05 10:38] LABS: INR 0.94
[2021-07-05 10:39] LABS: PARTIAL THROMBOPLASTIN TIME 29.6 SECONDS (25.9-37.0)
[2021-07-05] MEDS ORDERED: SILVER NITRATE APPLICATOR TOP ONE (10:45)
[2021-07-05] MEDS ORDERED: LIDOCAINE 4% TOPICAL SOLN 50 ML BTL TOP ONE (11:20)
[2021-07-05] MEDS ORDERED: AMOX875T2 PO (13:50)
[2021-07-05 13:53] VITALS: BP 160/106
== END 2021-07-05 14:00 | disposition home or self-care (01) ==
LOC: M ED 08:08
DX: R04.0 Epistaxis (principal)

== ENCOUNTER → 2021-11-14 | Outpatient (CLI) | payer OTHER ==
[~2021-11-14] MED LIST changes: +AMOX875T2 PO
== END ==
LOC: M PAIN 09:45
PROVIDERS: ATTEND Nurse Practitioner Family
DX: M96.1 Postlaminectomy syndrome, not elsewhere classified (principal); E78.00 Pure hypercholesterolemia, unspecified; Z87.442 Personal history of urinary calculi; I25.2 Old myocardial infarction; Z87.891 Personal history of nicotine dependence; Z79.82 Long term (current) use of aspirin; Z79.899 Other long term (current) drug therapy

== ENCOUNTER → 2022-03-10 | Outpatient (CLI) | payer OTHER | LOC: M PAIN 08:45 | PROVIDERS: ATTEND Nurse Practitioner Family | DX: M96.1 Postlaminectomy syndrome, not elsewhere classified (principal); E78.00 Pure hypercholesterolemia, unspecified; I25.2 Old myocardial infarction; Z87.442 Personal history of urinary calculi; M54.50 Low back pain, unspecified; Z87.891 Personal history of nicotine dependence ==